=== PATIENT | female | born 1940 | race Caucasian/White ===

== ENCOUNTER 2017-02-21 14:22 | Inpatient (IN) | payer OTHER ==
--- NOTE | 2017-02-21 07:45 | BGECT ---
[f rep st] OUTPATIENT ECT Amended report ECT CONSULTATION IDENTIFYING DATA: The patient is a 76-year-old, , white female, accompanied by her [id number] daughter, who provided significant collateral information given the patient's poor insight and memory. This patient was referred for ECT consultation by Eagle Kaplan MD, who is her outpatient psychiatrist. She does have prior inpatient psychiatric hospitalization and ECT treatment [address] Kaplan also provided verbal collateral information prior to this visit. The patient presently lives alone but has had a slew of family members and friends who have attempted to help care for her over these last 2 months in which her severe depression and pain symptoms (to be described later) have been at their worst. She would be unable to adequately care for herself safely living independently. Her medical power of sports attorney is her son, living on the [facility]. She has no local family. REASON FOR CONSULTATION: The patient has a long history of mood disorder, most likely consistent with bipolar spectrum illness, who has been experiencing a 2- month history of dramatic increase in her depression with comorbid severe vulvodynia. The vulvodynia has been approached with multiple treatment efforts to no avail. These will be described more in medical history. Her depression seems clearly intertwined with this pain syndrome to the point where it is even unclear what the "chicken or the egg" is. She had the same event happened a year and a half ago but thankfully it resolved within a couple of months. Her present mood symptoms include dysphoria, anhedonia, anergia, amotivation, loss of appetite with 10-pound weight loss, and adequate sleep only by taking 2 over- the-counter Tylenol PM along with her alprazolam. She has a sense of hopelessness and futility with suicidal ideation without any present active plan. She does feel like a burden to her family. Her Barnett depression score was 45, and she did score a 1 on question #9 pertaining to suicidality. Her mood disorder questionnaire had 4/13 symptoms score positive. She is a poor historian around her medications given what her daughter describes as fairly significant short-term memory problems whereby she will forget something that they both spoke about just 5 minutes earlier. To the best of daughter's knowledge, the patient is on the following: Oxcarbazepine 300 mg t.i.d., alprazolam 0.25 mg b.i.d. and 0.5 mg at h.s. and the following antihypertensives : Metoprolol 100 mg b.i.d., amlodipine 5 mg q. day, losartan 100 mg q. day, and chlorthalidone 25 mg 1/2 q. day. She was recently started on Trintellix, a new antidepressant, by Dr. Kaplan but the patient simply stopped it for unclear reasons. The patient's daughter believes that she has also been on other antidepressants in the course of this last 2 months but clearly they have not helped. Indeed, the daughter indicates that the mother has been on a trajectory toward ever worsening depression over these last 2 months despite any intervention. She does have a history of suicide attempt by cutting on her wrists at 24 years old when she had an abrupt onset of her first severe depression in the absence of any situational stressor. She was hospitalized at that time, and had electroconvulsive therapy. She was then on lithium for a very long time until Dr. Kaplan took her off it. Dr. Kaplan has been treating her for 12 years. She has had a total of 4 major episodes over her life span, including this present one. 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 For instance, she thought a toy a was Satan and it had to be destroyed. She has no history of depression or seasonality to her mood episodes. She does have a relatively early onset of depression and by history no adequate response to antidepressants. She does have the psychotic episode. These elements, along with a more overt mixed psychotic episode and hyperthymic personality as well as the possibility of a family history of bipolar, all are significant red flags for her having bipolar spectrum illness. Her daughter does note that her short-term memory deficits have clearly been exacerbated in these last 2 months but have actually had an insidious worsening over the last 2 years. A Mini-Mental State Exam test was done in this office and she scored 29/30. The casualty underwriter, however, feels that the short-term memory element to this test was inaccurate as she was unable to recall when tested, a point of discussion that was made just a few minutes prior, confirming the daughter's observation of significant anterograde amnesia. She has not been worked up for dementia. She does have a history of significant hypertension requiring these for blood pressure medications, speaking to the possibility of a vascular element to her mood or cognitive issues. PAST PSYCHIATRIC HISTORY: Please see the history of present illness. PAST MEDICAL HISTORY: The patient suffers with hypertension for which she takes 4 medications which achieve relatively normal blood pressures. She had stage I breast cancer 12 years ago and received lumpectomy and radiation therapy , and is presumably in remission. Other than the blood pressure, the patient had slightly elevated cholesterol and was on a statin but once again became noncompliant with it for reasons that she herself cannot speak to. She does not suffer with diabetes and was a cigarette smoker up until 30 years ago. No family history of premature from coronary artery disease. She herself has no known history of UT or CVA. She does not have chronic daily headaches. Other than the vulvodynia, the patient has no other paresthesias or focal neurologic symptoms. She does take 2000 units a day of vitamin D3. ALLERGIES: She has no known drug allergies. FAMILY HISTORY: Significant for maternal grandmother and 2 uncles who all suicided. Her mother dealt with depression. The patient's daughter deals with depression and possibly bipolar. ALCOHOL AND DRUG HISTORY: The patient denies any present illicit substance use or alcohol use. She is arguably self-medicating with the Tylenol PM. She herself is not reliable around her medications and it is unclear whether all her serial caretakers have had adequate understanding of what her medication regimen is supposed to be. For instance, even this daughter who presented with her today, and has been out here 5 times since this episode has begun, was unaware that the patient had stopped certain medications or that she was taking others, stating that it was the previous nut processing supervisor, a nurse friend, who had made some of those changes without input from her doctors. The patient did smoke cigarettes up until 46 years old. SOCIAL HISTORY: The patient grew up in [place] until she was 13 years old. Then her parents and she moved with her mother to [place]. She has 3 siblings, 2 of whom live out of [facility]. One in an airplane crash. She has 1 half brother. 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 She has 4 children and 6 grandchildren. MENTAL STATUS EXAM: The patient is a 76-year-old white female who appears her stated age. She is adequately well-groomed with appropriate dress. There is some psychomotor slowing and impoverishment of speech and constriction of affect , all consistent with her depressed mood, but overall she is cooperative and pleasant and it is clear that she makes efforts to put on a good appearance. It seems that she is ambivalent about the idea of coming into the hospital, which seems necessary and in that sense it appears as if she is minimizing some of her symptoms at times in a way to negotiate for that hospitalization not to have to occur. At other times during the interview, she was clear that she needed relief from her mental and physical suffering as soon as possible. She admits to suicidal ideation without intent or plan. Thought processes are goal directed. Thought content is also positive for rumination around worry about her depression and vulvodynia to a degree that it is all consuming. She otherwise has no katie psychotic symptoms. Cognition is marked by clear impairment in her short and long-term memory. She also appears, unlike a patient with pseudodementia, to not be as aware of that deficit as others around her. She also seems to be relatively unphased and unimpacted by it. Judgment and insight are clearly impaired. She seemed able to focus and attend to this casualty underwriter's explanation about ECT but when I quizzed her moments after providing some basic information, she was unable to recollect the data. FIVE AXIS DIAGNOSES: AXIS I: 1. Bipolar 2 disorder, depressed with history of psychotic features. 2. Cognitive disorder, not otherwise specified (possibly due to medication, depression, and unclear etiology which may include vascular insults given the hypertension). 3. 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 AXIS II: Deferred. AXIS III: 1. Vulvodynia. 2. Remote history of breast cancer. 3. Hypertension. 4. Hyperlipidemia (noncompliant with statin). AXIS IV: Moderate. AXIS V: 32. IMPRESSION/RECOMMENDATION: The patient presents a complicated array of comorbidities at present. Notably, she is clearly unable to care for herself independently and her family is out of state. Her present caregiver, her daughter who is visiting temporarily, is dealing with a severe gastrointestinal virus and is not even able to stay with the patient for fear of sickening her. I am more concerned about grave disability and having untoward problems as a function of this patient's cognitive deficits and depression which include mismanaging her own medication and subsequent falls than I am with imminent suicidality. She and her daughter believe ECT is a good treatment alternative for her at this time. I agree that she has some degree of treatment resistance , although there are certainly medication trials that have not been attempted but a sense of urgency in the patient such that she feels unwilling to endure what would be likely a many-month attempt to get her mood symptoms under control with medications alone. What is further complicating her medication management, other than her own noncompliance based in part on her cognitive dysfunction, is diagnostic uncertainty. I am far from certain that this patient has a bipolar spectrum illness but if she did, it would arguably be less fruitful to start antidepressants and more so to use mood stabilizing medications. I will try and find out from Dr. Kaplan why she was taken off lithium. This may be worth restarting. Lamictal also could be a very helpful medication, although given its slow titration schedule, would also not reveal its benefits for 2 or 3 months. Seroquel or Latuda could be considered given their FDA approval for bipolar depression. I would also want to see her taken off her amnesogenic medications, the alprazolam and Tylenol PM. Those medications are, at best, Band-Aids, in my opinion, and are likely contributing to her anterograde amnesia and putting her at risk for gait disturbance and possibly increased depression itself. A pre ECT evaluation and implementation of treatment plan would most safely occur in inpatients and, if we choose to initiate acute ECT treatment, I would insist that this occur during her inpatient stay. I am concerned, given her memory impairment, that she would be at risk for significant cognitive problems , including delirium during acute ECT. I may even choose to start with 2 time per week treatments and do them right unilateral. Prior to starting ECT, the patient will require a history and physical, lab work, including "organic" labs , and an MRI of the brain to rule out any white matter lesions or other abnormalities. We would need to get a signed consent from her medical power of sports attorney, her son. I could try trazodone 25 mg at h.s. to help replace her Tylenol PM. I might consider switching her to a longer acting benzodiazepine than alprazolam in order to more seamlessly taper her off the benzodiazepines. I could certainly start either Lamictal, Seroquel or Latuda during her inpatient stay with Dr. Kaplan, and the patient and daughter's approval. This patient could even be a candidate for Symbyax given her weight loss with her depression. There would be no direct medical intervention for her vulvodynia while inpatient on the psychiatric unit but in this casualty underwriter's experience a patient with such a pain syndrome and comorbid depression often has at least an abatement of their pain with a commensurate abatement of their depression. Otherwise, the patient and daughter were given extensive verbal, written and internet-based references in the service of providing psychoeducation about ECT and its risks, benefits and alternatives. We discussed APA-based guidelines for being a candidate for this procedure, including factors such as acuity, treatment resistance, patient preference, and the risk of inaction or inadequate action, i.e., morbidity or mortality from one 's mood disorder (if undertreated) and the role of possible diagnostic uncertainty. Alternative treatments, such as further med trials, were discussed. STAR*D data was used to inform this medical decision-making process, comparing relative remission rates with further med trials in a treatment-resistant cohort with remission and response rates using ECT in treatment-resistant depression. The risks were highlighted, including mortality from anesthesia, UT, arrhythmia , or CVA. Common nuisance side effects were discussed, including headaches, nausea, jaw pain and muscle aches. Cognitive side effects were discussed extensively, both verbally and with written handout. This includes the potential for anterograde and retrograde amnesia and even, in her case, delirium. Slowed processing speed and abulia were discussed. We discussed right unilateral versus bilateral ECT and it is this casualty underwriter's opinion that we would start with right unilateral in order to mitigate the likelihood of severe cognitive impact given her already significant anterograde amnesia. The family understands a typical course of ECT is 6-18 treatments done 2-3 times per week with right unilateral often taking longer to complete than bilateral. Maintenance ECT was discussed as beneficial to reduce relapse risk when used with medications rather than either modality alone or, of course, neither modality. In the discussion of whether to start this in versus outpatient and the need for 24/7 supervision, in any case, it became clear that this patient, for many reasons, needs to undergo the lion's share of her acute treatment while inpatient. It then was discussed that she would benefit from being transferred to an assisted living facility for up to a month afterwards during the initial phase of her maintenance treatment and to convalesce from the cognitive impact of the acute phase. Missy Hu RN, has already started the discussion with the family about the logistics of our treatment and she has given them information about assisted living programs. They are aware of the therapeutic services provided by [facility]. /[id number]/MODL Add acc#, 02/22/17, kelvin [email or web address]
--- NOTE | 2017-02-21 15:04 | EDPHY ---
H & P Stated Complaint: sent by dr oh for eval/tlc for ect Time Seen by Provider: 02/21/17 14:51 HPI/ROS: CHIEF COMPLAINT: Depression HISTORY OF PRESENT ILLNESS: The patient is a 76-year-old female who is brought to the emergency department by her daughter for depression. She states that she has a chronic history of vulva pain and inflammation. She has been seen by several specialists but there is no specific treatment for her chronic pain. Because of this she has developed severe depression. She states that she has hardly got out of bed in the last month has lost 10 lb. Her daughter traveled from [place] to be with her and bring her here. Her psychiatrist is Dr. Contreras who referred her to Dr. Lao for ECT. She met Dr. Lao who recommended she come here for admission in ECT therapy. She denies suicidality. She denies homicidality. Denies self-harm or overdose. REVIEW OF SYSTEMS: Constitutional: denies: chills, fever, recent illness, recent injury EENTM: denies: blurred vision, double vision, nose congestion Respiratory: denies: cough, shortness of breath Cardiac: denies: chest pain, irregular heart rate, lightheadedness, palpitations Gastrointestinal/Abdominal: denies: abdominal pain, diarrhea, nausea, vomiting, blood streaked stools Genitourinary: denies: dysuria, frequency, hematuria, pain Musculoskeletal: denies: joint pain, muscle pain Skin: denies: lesions, rash, jaundice, bruising Neurological: denies: headache, numbness, paresthesia, tingling, dizziness, weakness Hematologic/Lymphatic: denies: blood clots, easy bleeding, easy bruising Immunologic/allergic: denies: HIV/AIDS, transplant EXAM: GENERAL: Well-appearing, well-nourished and in no acute distress. HEAD: Atraumatic, normocephalic. EYES: Pupils equal round and reactive to light, extraocular movements intact, sclera anicteric, conjunctiva are normal. ENT: TMs normal, nares patent, oropharynx clear without exudates. Moist mucous membranes. NECK: Normal range of motion, supple without lymphadenopathy or JVD. LUNGS: Breath sounds clear to auscultation bilaterally and equal. No wheezes rales or rhonchi. HEART: Regular rate and rhythm without murmurs, rubs or gallops. ABDOMEN: Soft, nontender, normoactive bowel sounds. No guarding, no rebound. No masses appreciated. BACK: No CVA tenderness, no spinal tenderness, step-offs or deformities EXTREMITIES: Normal range of motion, no pitting or edema. No clubbing or cyanosis. NEUROLOGICAL: Cranial nerves II through XII grossly intact. Normal speech, normal gait. 5/5 strength, normal movement in all extremities, normal sensation PSYCH: Pleasant,Normal mood, normal affect. SKIN: Warm, dry, normal turgor, no visible rashes or lesions. Source: Patient Exam Limitations: No limitations - Personal History Current Tetanus/Diphtheria Vaccine: Yes - Medical/Surgical History Hx Asthma: No Hx Chronic Respiratory Disease: No Hx Diabetes: No Hx Cardiac Disease: No Hx Renal Disease: No Hx Cirrhosis: No Hx Alcoholism: No Hx HIV/AIDS: No Hx Splenectomy or Spleen Trauma: No Other PMH: depression/breast cancer/htn - Family History Significant Family History: No pertinent family hx - Social History Smoking Status: Former smoker Alcohol Use: Sober Drug Use: None Constitutional: Initial Vital Signs Temperature (C) 36.5 C 02/21/17 14:28 Heart Rate 79 02/21/17 14:28 Respiratory Rate 16 02/21/17 14:28 Blood Pressure 126/84 H 02/21/17 14:28 O2 Sat (%) 92 02/21/17 14:28 O2 Delivery Mode Room Air Allergies/Adverse Reactions: No Known Allergies Allergy (Unverified 02/21/17 14:26) Home Medications: Medication Instructions Recorded Amlodipine Besylate 02/21/17 Chlorthalidone 02/21/17 LORAZEPAM 02/21/17 Losartan Potassium 02/21/17 Metoprolol Succinate 02/21/17 OXcarbazepine 02/21/17 Medical Decision Making - Diagnostics EKG Interpretation: An EKG obtained and was read and documented in trace view. Please see trace view for full reading and report. Sinus rhythm, no acute ischemic changes Imaging Results: Imaging Impressions Brain MRI 02/21/17 14:48 Impression: 1. Mild cerebral atrophy. 2. No acute infarct, hemorrhage, hydrocephalus, mass effect, or herniation. 3. Several nonspecific hyperintense T2/FLAIR signal abnormalities in the white matter of bilateral cerebral hemispheres. Differential diagnosis includes moderate microvascular ischemic gliosis, post-infectious/post-inflammatory sequela, atypical demyelinating disease, or migraine-related sequela. ED Course/Re-evaluation: 7:30 p.m. the patient is accepted to [address] [place] [address] and will have ECT tonight. Transfer paperwork completed. 8:20 p.m. patient accepted by Dr. Oh to [address] [place] [address]. Differential Diagnosis: Partial list of the Differential diagnosis considered include but were not limited to; depression, suicidality, and although unlikely based on the history and physical exam, I also considered psychosis, bipolar. - Data Points Laboratory Results: Laboratory Results 02/21/17 15:55 02/21/17 15:55 02/21/17 02/21/17 02/21/17 16:55 15:55 15:55 WBC 5.82 10^3/uL 10^3/uL (3.80-9.50) RBC 4.04 10^6/uL L 10^6/uL (4.18-5.33) Hgb 12.7 g/dL g/dL (12.6-16.3) Hct 34.6 % L % (38.0-47.0) MCV 85.6 fL fL (81.5-99.8) MCH 31.4 pg pg (27.9-34.1) MCHC 36.7 g/dL g/dL (32.4-36.7) RDW 12.9 % % (11.5-15.2) Plt Count 283 10^3/uL 10^3/uL (150-400) MPV 9.0 fL fL (8.7-11.7) Neut % (Auto) 58.1 % % (39.3-74.2) Lymph % (Auto) 22.0 % % (15.0-45.0) [place] % (Auto) 14.8 % H % (4.5-13.0) Eos % (Auto) 4.6 % % (0.6-7.6) Baso % (Auto) 0.3 % % (0.3-1.7) Nucleat RBC Rel Count 0.0 % % (0.0-0.2) Absolute Neuts (auto) 3.38 10^3/uL 10^3/uL (1.70-6.50) Absolute Lymphs (auto) 1.28 10^3/uL 10^3/uL (1.00-3.00) Absolute Monos (auto) 0.86 10^3/uL H 10^3/uL (0.30-0.80) Absolute Eos (auto) 0.27 10^3/uL 10^3/uL (0.03-0.40) Absolute Basos (auto) 0.02 10^3/uL 10^3/uL (0.02-0.10) Absolute Nucleated RBC 0.00 10^3/uL 10^3/uL (0-0.01) Immature Gran % 0.2 % % (0.0-1.1) Immature Gran # 0.01 10^3/uL 10^3/uL (0.00-0.10) Sodium Potassium Chloride Carbon Dioxide Anion Gap BUN Creatinine Estimated GFR Glucose Calcium Total Bilirubin AST ALT Alkaline Phosphatase C-React Prot High Sens Total Protein Albumin Vitamin B12 25-OH Vitamin D Total Folate TSH Urine Color YELLOW Urine Appearance CLEAR Urine pH 7.0 (5.0-7.5) Ur Specific [place] 1.010 (1.002-1.030) Urine Protein NEGATIVE (NEGATIVE) Urine Ketones NEGATIVE (NEGATIVE) Urine Blood NEGATIVE (NEGATIVE) Urine Nitrate NEGATIVE (NEGATIVE) Urine Bilirubin NEGATIVE (NEGATIVE) Urine Urobilinogen NEGATIVE EU EU (0.2-1.0) Ur Leukocyte Esterase NEGATIVE (NEGATIVE) Urine Glucose NEGATIVE (NEGATIVE) Urine Opiates Screen NEGATIVE (NEGATIVE) Urine Barbiturates NEGATIVE (NEGATIVE) Ur Phencyclidine Scrn NEGATIVE (NEGATIVE) Ur Amphetamine Screen NEGATIVE (NEGATIVE) U Benzodiazepines Scrn NON-NEGATIVE H (NEGATIVE) Urine Cocaine Screen NEGATIVE (NEGATIVE) U Marijuana (THC) Screen NON-NEGATIVE H (NEGATIVE) Ethyl Alcohol LIZ Screen MTHFR C677T Mutation Pending MTHFR Interpretation Pending MTHFR Reviewed By Pending 02/21/17 02/21/17 15:55 15:55 WBC RBC Hgb Hct MCV MCH MCHC RDW Plt Count MPV Neut % (Auto) Lymph % (Auto) [place] % (Auto) Eos % (Auto) Baso % (Auto) Nucleat RBC Rel Count Absolute Neuts (auto) Absolute Lymphs (auto) Absolute Monos (auto) Absolute Eos (auto) Absolute Basos (auto) Absolute Nucleated RBC Immature Gran % Immature Gran # Sodium 124 mEq/L L mEq/L (134-144) Potassium 3.4 mEq/L L mEq/L (3.5-5.2) Chloride 89 mEq/L L mEq/L (97-110) Carbon Dioxide 24 mEq/l mEq/l (22-31) Anion Gap 11 mEq/L mEq/L (8-16) BUN 15 mg/dL mg/dL (7-23) Creatinine 0.8 mg/dL mg/dL (0.6-1.0) Estimated GFR > 60 Glucose 94 mg/dL mg/dL (70-100) Calcium 9.7 mg/dL mg/dL (8.5-10.4) Total Bilirubin 0.8 mg/dL mg/dL (0.1-1.4) AST 29 IU/L IU/L (14-46) ALT 35 IU/L IU/L (9-52) Alkaline Phosphatase 92 IU/L IU/L (38-126) C-React Prot High Sens 6.6 mg/L mg/L Total Protein 7.1 g/dL g/dL (6.3-8.2) Albumin 4.4 g/dL g/dL (3.5-5.0) Vitamin B12 983 pg/mL H pg/mL (239-931) 25-OH Vitamin D Total 72.5 ng/mL ng/mL (30-100) Folate > 20.00 ng/mL ng/mL (2.80 - >20.00) TSH 0.397 uIU/mL L uIU/mL (0.465-4.680) Urine Color Urine Appearance Urine pH Ur Specific [place] Urine Protein Urine Ketones Urine Blood Urine Nitrate Urine Bilirubin Urine Urobilinogen Ur Leukocyte Esterase Urine Glucose Urine Opiates Screen Urine Barbiturates Ur Phencyclidine Scrn Ur Amphetamine Screen U Benzodiazepines Scrn Urine Cocaine Screen U Marijuana (THC) Screen Ethyl Alcohol < 10 mg/dL mg/dL (0-10) LIZ Screen Pending MTHFR C677T Mutation MTHFR Interpretation MTHFR Reviewed By Medications Given: Discontinued Medications Metoprolol Tartrate (Lopressor) 100 mg PO EDNOW ONE Stop: 02/21/17 19:36 Last Admin: 02/21/17 19:59 Dose: 100 mg Oxcarbazepine (Trileptal) 300 mg PO EDNOW ONE Stop: 02/21/17 19:36 Last Admin: 02/21/17 19:59 Dose: 300 mg Departure - Departure Disposition: [facility] IP Clinical Impression: Depression Qualifiers: Depression Type: major depressive disorder Major depression recurrence: recurrent Active/Remission status: currently active Major depression episode severity: severe Psychotic features: without psychotic features Qualified Code(s ): F33.2 - Major depressive disorder, recurrent severe without psychotic features Condition: Fair
[2017-02-21] MEDS ORDERED: MAG HYDROX/AL HYDROX/SIMETH 30 ML UDCUP PO PRN ×2 (15:27→21:33)
[2017-02-21] MEDS ORDERED: MAGNESIUM HYDROXIDE 30 ML UDCUP PO PRN ×2 (15:27→21:33)
[2017-02-21 16:07] LABS: % IMMATURE GRANULYOCYTES 0.2 % (0.0-1.1); ABSOLUTE IMMATURE GRANULOCYTES 0.01 10^3/uL (0.00-0.10); ADD DIFF? NO; ADD MORPH? NO; ADD SCAN? NO; ATYPICAL LYMPHOCYTE FLAG 30 (0-99); FRAGMENT RBC FLAG 0 (0-99); HEMATOCRIT 34.6 % (38.0-47.0); HEMOGLOBIN 12.7 g/dL (12.6-16.3); LEFT SHIFT FLG 0 (0-99); LIPEMIA HEMOLYSIS FLAG 90 (0-99); MEAN CELL HEMOGLOBIN 31.4 pg (27.9-34.1); MEAN CELL HEMOGLOBIN CONCENTR. 36.7 g/dL (32.4-36.7); MEAN CELL VOLUME 85.6 fL (81.5-99.8); PLATELET CLUMPS FLAG 20 (0-99); PLATELET COUNT 283 10^3/uL (150-400); RED BLOOD CELL COUNT 4.04 10^6/uL (4.18-5.33); RED CELL DISTRIBUTION WIDTH 12.9 % (11.5-15.2)
--- NOTE | 2017-02-21 16:08 | CPEKG ---
Heart Rate: 72 RR Interval: 833 P-R Interval: 184 QRSD Interval: 90 QT Interval: 384 QTC Interval: 421 P [place]: 77 QRS [place]: 32 T Wave [place]: 59 EKG Severity - NORMAL ECG - EKG Impression: SINUS RHYTHM Electronically Signed By: Manuel Burgos 21-Feb-2017 16:16:00
[2017-02-21 16:55] LABS: ALANINE AMINOTRANSFERASE 35 IU/L (9-52); ALBUMIN 4.4 g/dL (3.5-5.0); ALKALINE PHOSPHATASE 92 IU/L (38-126); ANION GAP 11 mEq/L (8-16); ASPARTATE AMINOTRANSFERASE 29 IU/L (14-46); BILIRUBIN,TOTAL 0.8 mg/dL (0.1-1.4); CALCIUM 9.7 mg/dL (8.5-10.4); CARBON DIOXIDE 24 mEq/l (22-31); CHLORIDE 89 mEq/L (97-110); CREATININE 0.8 mg/dL (0.6-1.0); ETHANOL SERUM < 10 mg/dL (0-10); GLOMERULAR FILTRATION RATE > 60; GLUCOSE 94 mg/dL (70-100); POTASSIUM 3.4 mEq/L (3.5-5.2); SODIUM 124 mEq/L (134-144); TOTAL PROTEIN 7.1 g/dL (6.3-8.2)
[2017-02-21 16:58] LABS: HIGHLY SENSITIVE CRP 6.6 mg/L
[2017-02-21 17:03] LABS: COLOR YELLOW; LEUKOCYTE ESTERASE,URINE NEGATIVE (NEGATIVE); NITRITE,URINE NEGATIVE (NEGATIVE)
[2017-02-21 17:12] LABS: VITAMIN D 25-HYDROXY TOTAL 72.5 ng/mL (30-100)
[2017-02-21 18:01] LABS: FOLATE SERUM > 20.00 ng/mL (2.80 - >20.00)
[2017-02-21] MEDS ORDERED: METOPROLOL TARTRATE 100 MG TAB PO ONE (19:35)
[2017-02-21] MEDS ORDERED: OXcarbazepine 300 MG TAB PO ONE (19:35)
[2017-02-21] MEDS ORDERED: METOPROLOL TARTRATE 50 MG TAB ONE (19:52)
[2017-02-21] MEDS ORDERED: QUEtiapine FUMARATE 50 MG TAB PO PRN (20:08)
--- NOTE | 2017-02-21 20:25 | PDCONSULT ---
Education Nurse Note: Please see full dictated report from 02/20 on this patient. I met with pt and daughter in ED, prior to her transfer to at [place]. She remains clinically unchanged, anxious, dysphoric and perplexed. Some of her Organic w/u are back and notable for MRI with bilateral white matter lesions c/w possible "vascular depression" which can be a hargbinger of vascular dementia. EKG wnl. TSH slightly suppressed. B12, folate vit d wnl. Lytes with hyponatremia, NA of 124, likely due to Trileptal but cannot r/o other causes. Will stop Trileptal as we would plan to do going into ECT anyway and re-check Na in am. U/A neg for UTI. Pt with both benzo and THC in UDS, c/w with her xanax Rx and daughter's report that she had mother try "a brownie" for vulvodynia pain relief. Will d/c xanax along with trileptal. She reports only taking 0.125 mg a day. Also, she will not have access to her Tylenol PM of course while inpatient. To cover anxiety and insomnia, I will Rx low dose seroquel. Seroquel may be titrated given its FDA approval in bipolar depression and in this patients case , appetite stimulation is a plus. Pt may be a good Low dose Li plus Lamictal candidate. WIll discuss with Dr Kaplan. WIll re check lipids in AM and have inspector handbag frames consider re-start of her statin given her white matter changes on MRI, HTN, and h/o of hyperlipidemia. Possible ECT start for tomorrow, pending Na level, second opinion letter from Dr Kaplan and at least verbal consent given by son (Medical POA). Daughter and pt have already provided I/C to start ECT and Dr Kaplan wishes her to undergo tx per phone discussion with him yesterday. Laboratory Tests 02/21/17 02/21/17 02/21/17 15:55 15:55 16:55 Hct 34.6 L Sodium 124 L Potassium 3.4 L Chloride 89 L Vitamin B12 983 H 25-OH Vitamin D Total 72.5 Folate > 20.00 TSH 0.397 L U Benzodiazepines Scrn NON-NEGATIVE H U Marijuana (THC) Screen NON-NEGATIVE H MSE unchanged from 02/20 5 axis Dx unchanged from 02/20
[2017-02-21] MEDS ORDERED: QUEtiapine FUMARATE 25 MG TAB PO SCH (21:00)
[2017-02-21] MEDS: QUEtiapine FUMARATE 25 MG TAB PO SCH (22:15)
[2017-02-21] MEDS ORDERED: LORazepam 0.5 MG TAB PO ONE (22:30)
[2017-02-22] MEDS: CHLORTHALIDONE 25 MG TAB PO SCH (08:54)
[2017-02-22] MEDS: LOSARTAN POTASSIUM 50 MG TAB PO SCH (08:55)
[2017-02-22] MEDS: amLODIPine BESYLATE 5 MG TAB PO SCH (08:57)
[2017-02-22] MEDS ORDERED: METOPROLOL TARTRATE 100 MG TAB PO SCH ×2 (09:00)
[2017-02-22] MEDS ORDERED: METOPROLOL TARTRATE 50 MG TAB PO SCH (09:00)
[2017-02-22 09:50] LABS: ANION GAP 10 mEq/L (8-16); CARBON DIOXIDE 28 mEq/l (22-31); CHLORIDE 89 mEq/L (97-110); GLUCOSE 113 mg/dL (70-100); POTASSIUM 3.7 mEq/L (3.5-5.2); SODIUM 127 mEq/L (134-144)
[2017-02-22 09:51] LABS: CALCIUM 9.6 mg/dL (8.5-10.4); CHOLESTEROL 219 mg/dL (140-220); CHOLESTEROL/HDL RATIO 3.98 RATIO (1.00-4.44); CREATININE 0.6 mg/dL (0.6-1.0); GLOMERULAR FILTRATION RATE > 60; HIGH DENSITY LIPOPROTEIN 55 mg/dL (40-85); LDL/HDL RATIO 2.38 RATIO (1.00-3.22); LOW DENSITY LIPOPROTEIN 131 mg/dL (80-100); NON-HIGH DENSITY LIPOPROTEIN 164 mg/dL (90-129); TRIGLYCERIDE 166 mg/dL (35-135); VERY LOW DENSITY LIPOPROTEINS 33 mg/dL (8-25)
[2017-02-22] MEDS: QUEtiapine FUMARATE 25 MG TAB PO PRN (12:59)
[2017-02-22] MEDS: LORazepam 0.5 MG TAB PO PRN (13:01)
--- NOTE | 2017-02-22 13:23 | SOAPPROG ---
SOAP Progress Note Assessment/Plan: Assessment: Bipolar II, depressed with history of psychotic fx, Cognitive D/O nos ( secondary to meds, Hyponatremia, mood state and/or incipient vascular dementing process), Pain D/O, HTN, Vulvodynia, hyperlipidemia Plan:Met with pt today for 25 min. She is upset about not getting started with ECT today and understands MDs explanation of risks involved with low Na. She responded to seroquel with adequate sleep. She is quite anxious today and has notable hand tremor which could be c/w withdrawal from benzo and trileptal. I have her on essentially a CWAS in that she is being checked q4 hour with VS and for tremulousness with a prn order to give ativan for increased BP, P, or tremor. Will have RN dose her now. Will call son Esequiel re plan and to update him and provide psychoed re ECT. Will have hospitalist consult re Na (which has come up to 127) to ascertain if there might be an etiology other than Trileptal SE. Pt denies polydipsia,for instance. WOuld expect she be re-started on Statin given Lipids and other CAD risk factors, along with MRI findings. Checking HgA1C due to glucose result of CMP 02/22/17 13:23 Objective: Vital Signs Temp Pulse Resp BP Pulse Ox 36.6 C 79 12 100/54 L 96 02/22/17 12:59 02/22/17 12:59 02/22/17 12:59 02/22/17 12:59 02/22/17 12:59 Laboratory Results 02/22/17 08:20 Laboratory Tests 02/21/17 02/22/17 15:55 08:20 Sodium 124 L 127 L Triglycerides 166 H Cholesterol 219 LDL Cholesterol, Calc 131 H HDL Cholesterol 55 ICD10 Worksheet Patient Problems: Problems Problem Status Onset Depression Acute
--- NOTE | 2017-02-22 20:05 | BCON ---
[f rep st] BEHAVIORAL HEALTH CONSULTATION INTERNAL MEDICINE CONSULTATION DATE OF CONSULTATION: 02/22/2017 REFERRING PHYSICIAN: Ruben Juarez MD REASON FOR REFERRAL: Medical clearance for inpatient behavioral health stay. HISTORY OF PRESENT ILLNESS: The patient has had worsening depression with some suicidality for at least a month. It appears to have coincided with severe vulvodynia. She reports she has been to 3 different specialists and not found a reason for her vulvar pain. She was referred for electroconvulsive therapy by her outpatient psychiatrist, having had trials of many different medications , and she was admitted through the emergency department. She had reportedly been not completely compliant with some of her medications, including HMG-CoA reductase inhibitor for dyslipidemia. She was found to have hyponatremia on laboratory studies yesterday in the emergency department. It improved today after discontinuation of oxcarbazepine. She additionally has dyslipidemia on lipid panel that was drawn this morning. She is currently without any acute complaints. She reports that she has continued vulvar pain. PAST MEDICAL HISTORY: 1. Breast cancer 12 years ago, status post lumpectomy with no recurrence that she knows. 2. Hypertension. 3. Dyslipidemia. 4. Depression. MEDICATIONS PRIOR TO ADMISSION: 1. Amlodipine 5 mg p.o. daily. 2. Chlorthalidone 12.5 mg p.o. daily. 3. Losartan 100 mg p.o. daily. 4. Metoprolol 100 mg p.o. b.i.d. 5. Alprazolam 0.125 mg b.i.d. 6. Oxcarbazepine 300 mg t.i.d. ALLERGIES: There are no known drug allergies. SOCIAL HISTORY: She is . She lives alone. She has had frequent visits from out of state daughter due to her issues around her functioning with the vulvodynia and the depression. She has a remote history of tobacco smoking. She has 4 children and 6 grandchildren. She is a retired high school history teacher. FAMILY HISTORY: There is significant family history of depression and suicide. REVIEW OF SYSTEMS: She endorses vulvar pain, though she does not appear to be in any distress at present. She has had weight loss over the past month or 2 with a reduced appetite. She denies neurologic symptoms including vision changes, difficulty swallowing, weakness, numbness or tingling of the extremities. She denies chest pain or palpitations. She denies cough or dyspnea. She denies nausea, vomiting, constipation, or diarrhea. She denies dysuria or urinary frequency. She denies joint pain or joint stiffness. She denies skin rash or skin breakdown. She denies feeling excessively hot or cold. She does have fatigue, and she is aware of some issues with her memory. PHYSICAL EXAM: VITAL SIGNS: Blood pressure is 115/57. Heart rate is 84, respiratory rate is 20. Oxygen saturation is 98% on room air. Temperature is 36 degrees centigrade. Her weight is 63.5 kg for a body mass index of 22.6. GENERAL: This is a well-nourished, well-developed woman wearing a green suicide [place], sitting up in a chair, cooperative, and in no acute distress. HEENT: Extraocular movements are intact. Pupils are equal, round, and reactive to light. Mucous membranes are moist. Dentition is in good condition. There is no posterior oropharyngeal mucus. There were no oropharyngeal mucosal lesions. NECK: Supple with no thyromegaly. HEART: There is a regular rate and rhythm with no murmurs, rubs, or gallops. LUNGS: Clear to auscultation bilaterally. ABDOMEN: Soft, nontender, nondistended with normoactive bowel sounds. EXTREMITIES: There is no cyanosis, clubbing, or edema. Radial pulses are 2+ bilaterally. Dorsalis pedis pulse is 2+ on the right. Dorsalis pedis and posterior tibialis pulses are non palpable on the left. NEUROLOGIC: She is alert and oriented to her general situation, the date of the month and the year. She does not know the name of the facility and thinks it is called [facility]. Though her blood pressure medications were reviewed with her, several minutes later she was unable to recall her blood pressure medicines other than losartan. Cranial nerves 2-12 are grossly intact. There is no focal weakness. Sensation is intact to light touch. Deep tendon reflexes are 2+ bilaterally at the biceps, patellar, and Achilles tendons. Glabellar and snouting reflexes are negative. Palmomental is positive. Her gait is within normal limits. LABORATORY STUDIES: Drawn in the emergency department, and this morning. Yesterday, her sodium was 124, potassium was 3.4, chloride was 89. Yesterday morning, she had a markedly low sodium at 124. Potassium and chloride were slight slightly low at 3.4 and 89. Otherwise, renal function and electrolytes and liver functions were within normal limits. Vitamin B12 was slightly high. Vitamin D was fully repleted and normal at 72.5. Folate was greater than 20. TSH was slightly suppressed at 0.397. Hemoglobin A1c was 6, the upper limit of normal, and then this morning sodium had improved from 124 to 127. Potassium had normalized. Chloride was still slightly low. Glucose was elevated at 113, but it is unclear whether this was fasting. A lipid panel was drawn which showed triglycerides of 166, cholesterol of 219, LDL of 131, HDL of 55. Hematology revealed very slight anemia with hematocrit of 34.6, otherwise overall within normal limits. There was a slight increase of absolute monocytes at 0.86 with the upper limit of normal being 0.8. Urinalysis was normal. Urine toxicology screen was non negative for benzodiazepines and marijuana. Ethyl alcohol in the serum was negative. ASSESSMENT/RECOMMENDATIONS: 1. Mental health issues, planning electroconvulsive therapy for refractory depression and further management per Psychiatry and the mental health team. 2. Hyponatremia, improving with discontinuation of oxcarbazepine. Most likely , oxcarbazepine is etiologic. It is possible that chlorthalidone is contributing as well. BMP has been ordered to be repeated in the morning. I have added on serum osmolality, urine osmolality, and urine sodium so that in case her serum sodium is not improving we can have a better understanding of the etiology of the hyponatremia. 3. Dyslipidemia. Per the ACC/SERNA 2013 criteria, she has a 16.8% 10 year cardiovascular risk with her hemoglobin A1c being at the upper end of normal indicating a possible prediabetic condition as well as possible peripheral vascular disease with no palpable pulses in her left foot. It is likely that an HMG-CoA reductase inhibitor is indicated to improve her dyslipidemia and reduce her 10 year cardiovascular risk. She could be further risk stratified as an outpatient with an ankle-brachial index to rule out peripheral vascular disease. Her risk factors would be history of smoking and hypertension as well as dyslipidemia. 4. Hypertension, appears to be adequately controlled on her current medications. Would continue those unless her hyponatremia proves to be refractory, in which case the next step would be to discontinue the chlorthalidone and increase her amlodipine from 5 mg to 10 mg. 5. Subclinical hyperthyroidism. I have ordered a free T4 and T3 for tomorrow morning. Her thyroid abnormality may be resulting from her depression and weight loss. It is unlikely that with such a slightly suppressed TSH that hyperthyroidism would be etiologic. There was no abnormality in her thyroid exam. Advise recheck TSH in 4-6 weeks. 6. Possible peripheral vascular disease. Advise ankle-brachial index testing as an outpatient. 7. Cognitive impairment. Vascular dementia is a possibility. Vascular risk factors are also risk factors for Alzheimer's dementia. Consider formal cognitive testing by a neuropsychologist if cognition does not improve with treatment of depression. 8. Vulvodynia. She reports evaluation by 3 different physicians, and complains of ongoing pain, though she did not seem distressed today. Query whether there is an element of dementia-related perseveration. Further evaluation could include review of records from treating physicians. I see no medical contraindications to the patient's continued stay on the inpatient behavioral health unit or to any psychiatric medications or procedures. Thank you very much for including me in the care of the patient, and please do not hesitate to contact me or the hospitalist service should there be need for further medical evaluation. I will follow up on her lab results tomorrow. /[id number]/MODL MTDD
[2017-02-22] MEDS: QUEtiapine FUMARATE 25 MG TAB PO SCH (20:35)
[2017-02-22] MEDS: METOPROLOL TARTRATE 100 MG TAB PO SCH (20:35)
[2017-02-23] MEDS: LORazepam 0.5 MG TAB PO PRN ×2 (05:58→12:32)
[2017-02-23] MEDS: METOPROLOL TARTRATE 100 MG TAB PO SCH ×2 (09:09→20:20)
[2017-02-23] MEDS: CHLORTHALIDONE 25 MG TAB PO SCH (09:11)
[2017-02-23] MEDS: amLODIPine BESYLATE 5 MG TAB PO SCH (09:11)
[2017-02-23] MEDS: LOSARTAN POTASSIUM 50 MG TAB PO SCH (09:12)
[2017-02-23 12:34] LABS: ANION GAP 11 mEq/L (8-16); CALCIUM 9.6 mg/dL (8.5-10.4); CARBON DIOXIDE 27 mEq/l (22-31); CHLORIDE 94 mEq/L (97-110); CREATININE 0.7 mg/dL (0.6-1.0); GLOMERULAR FILTRATION RATE > 60; GLUCOSE 90 mg/dL (70-100); SODIUM 132 mEq/L (134-144)
--- NOTE | 2017-02-23 14:12 | SOAPPROG ---
SOAP Progress Note Assessment/Plan: Assessment: * Hyponatremia, likely due to oxcarbazepine, improving. Continue to monitor. * HTN: BP elevated today. Would not stop chlorthalidone as hyponatremia is resolving. Continue to monitor. If continues elevated, would increase amlodipine and consider changing it to HS for better 24-hour coverage. 02/23/17 14:13 Subjective: Labs reviewed. Na improved to 132, Urine is dilute, not c/w SIADH. She is without complaint otherwise. Objective: Vital Signs Temp Pulse Resp BP Pulse Ox 36.5 C 87 12 148/66 H 88 L 02/23/17 08:15 02/23/17 09:09 02/23/17 08:15 02/23/17 09:12 02/23/17 08:15 Laboratory Results 02/23/17 06:00 Physical Exam - Physical Exam General Appearance: WD/WN, alert, no apparent distress ICD10 Worksheet Patient Problems: Problems Problem Status Onset Depression Acute
--- NOTE | 2017-02-23 14:46 | SOAPPROG ---
SOAP Progress Note Assessment/Plan: Assessment: Bipolar II, depressed with history of psychotic fx, Cognitive D/O nos ( secondary to meds, Hyponatremia, mood state and/or incipient vascular dementing process), Pain D/O, HTN, Vulvodynia, hyperlipidemia Plan:Met with pt today for 25 min. She is upset about not getting started with ECT today and understands MDs explanation of risks involved with low Na. She responded to seroquel with adequate sleep. She is quite anxious today and has notable hand tremor which could be c/w withdrawal from benzo and trileptal. I have her on essentially a CWAS in that she is being checked q4 hour with VS and for tremulousness with a prn order to give ativan for increased BP, P, or tremor. Will have RN dose her now. Will call son Esequiel re plan and to update him and provide psychoed re ECT. Will have hospitalist consult re Na (which has come up to 127) to ascertain if there might be an etiology other than Trileptal SE. Pt denies polydipsia,for instance. WOuld expect she be re-started on Statin given Lipids and other CAD risk factors, along with MRI findings. Checking HgA1C due to glucose result of CMP 02/22/17 13:23 02/23/17 14:39 Met with pt twice today. Discussed with RN. Pt remains dysphoric, perplexed, anxious and indecisive. MD expressed uncertainty about starting ECT tomorrow vs holding off and giving med approach, as discussed with Dr Kaplan, a try. THese meds include adding Li and LMT to regimen. She had good response to Li historcially and went off of it for no clear reason years ago. My ambiguity was difficult for her and she kept repeating "I'm leaving it up to you...I trust you ". I will have RN do cognitive testing more reliable and sensitive than a MMSE. The presence of dementia-like findings does not prohibit the use of ECT, but puts pt at risk for greater cognitive impact, including delirium. Na level is improving off Trileptal. I greatly appreciate Dr Renteria's thorough eval around this and other issues.. HgA1c point to pre-diabetic changes. Would likely benefit from statin, krishna as she had been on one and became n/c for unclear reasons (not side effects). Will re Check Na one more time tomorrow, review cognitive testing results and decide whether to start ECT Monday. Will keep NPO to cover that possiblity. Objective: Vital Signs Temp Pulse Resp BP Pulse Ox 36.2 C 62 12 140/66 H 96 02/23/17 12:15 02/23/17 12:15 02/23/17 12:15 02/23/17 12:15 02/23/17 12:15 Laboratory Results 02/23/17 06:00 Laboratory Tests 02/23/17 06:00 Sodium 132 L ICD10 Worksheet Patient Problems: Problems Problem Status Onset Depression Acute
[2017-02-23] MEDS: LIDOCAINE 2% JELLY 5 ML TUBE TP PRN (19:08)
[2017-02-23] MEDS: QUEtiapine FUMARATE 25 MG TAB PO SCH (20:20)
[2017-02-23] MEDS: lamoTRIgine 25 MG TAB PO SCH (20:20)
[2017-02-23] MEDS ORDERED: LITHIUM CARBONATE 300 MG CAP PO SCH (21:00)
[2017-02-24] MEDS ORDERED: NS 1,000 ML IV ONE (04:00)
[2017-02-24] MEDS ORDERED: LIDOCAINE 2% 5 ML SDV ID ONE (04:00)
[2017-02-24] MEDS ORDERED: ONDANSETRON DISINTEGRATING 4 MG TAB PO ONE (04:00)
[2017-02-24] MEDS ORDERED: CITRIC ACID/SODIUM CITRATE 30 ML UDCUP PO ONE (04:00)
[2017-02-24 07:11] LABS: INTERPRETATION See Comments
[2017-02-24] MEDS: METOPROLOL TARTRATE 100 MG TAB PO SCH ×2 (08:28→19:30)
[2017-02-24] MEDS: LOSARTAN POTASSIUM 50 MG TAB PO SCH (08:28)
[2017-02-24] MEDS: amLODIPine BESYLATE 5 MG TAB PO SCH (08:28)
[2017-02-24] MEDS: CHLORTHALIDONE 25 MG TAB PO SCH (08:32)
[2017-02-24] MEDS ORDERED: fentaNYL 100 MCG/2 ML INJ ONE (10:12)
[2017-02-24] MEDS ORDERED: MIDAZOLAM 2 MG/2 ML VIAL ONE (10:12)
[2017-02-24] MEDS ORDERED: ETOMIDATE 20 MG/10 ML VIAL ONE (10:12)
[2017-02-24] MEDS ORDERED: ONDANSETRON 4 MG/2 ML VIAL ONE (10:12)
[2017-02-24] MEDS ORDERED: GLYCOPYRROLATE 0.2 MG/1 ML VIAL ONE (10:12)
[2017-02-24] MEDS ORDERED: ROCURONIUM 50 MG/5 ML VIAL ONE (10:12)
[2017-02-24] MEDS ORDERED: SUCCINYLCHOLINE CHLORIDE 200 MG/10 ML VIAL ONE (10:13)
[2017-02-24 10:40] LABS: ANION GAP 9 mEq/L (8-16); CALCIUM 9.6 mg/dL (8.5-10.4); CARBON DIOXIDE 27 mEq/l (22-31); CHLORIDE 97 mEq/L (97-110); CREATININE 0.7 mg/dL (0.6-1.0); GLOMERULAR FILTRATION RATE > 60; GLUCOSE 84 mg/dL (70-100); POTASSIUM 4.1 mEq/L (3.5-5.2); SODIUM 133 mEq/L (134-144)
[2017-02-24] MEDS ORDERED: CITRIC ACID/SODIUM CITRATE 30 ML UDCUP ONE (12:07)
[2017-02-24] MEDS ORDERED: ONDANSETRON DISINTEGRATING 4 MG TAB ONE (12:07)
[2017-02-24] MEDS ORDERED: ONDANSETRON DISINTEGRATING 4 MG TAB PO PRN (12:50)
[2017-02-24] MEDS ORDERED: HYDROCODONE/APAP 5/325 TAB PO PRN (12:50)
[2017-02-24] MEDS ORDERED: IBUPROFEN 600 MG TAB PO PRN (12:50)
--- NOTE | 2017-02-24 13:02 | SOAPPROG ---
SOAP Progress Note Assessment/Plan: Assessment: Bipolar II, depressed with history of psychotic fx, Cognitive D/O nos ( secondary to meds, Hyponatremia, mood state and/or incipient vascular dementing process), Pain D/O, HTN, Vulvodynia, hyperlipidemia Plan:Met with pt today for 25 min. She is upset about not getting started with ECT today and understands MDs explanation of risks involved with low Na. She responded to seroquel with adequate sleep. She is quite anxious today and has notable hand tremor which could be c/w withdrawal from benzo and trileptal. I have her on essentially a CWAS in that she is being checked q4 hour with VS and for tremulousness with a prn order to give ativan for increased BP, P, or tremor. Will have RN dose her now. Will call son Esequiel re plan and to update him and provide psychoed re ECT. Will have hospitalist consult re Na (which has come up to 127) to ascertain if there might be an etiology other than Trileptal SE. Pt denies polydipsia,for instance. WOuld expect she be re-started on Statin given Lipids and other CAD risk factors, along with MRI findings. Checking HgA1C due to glucose result of CMP 02/22/17 13:23 02/23/17 14:39 Met with pt twice today. Discussed with RN. Pt remains dysphoric, perplexed, anxious and indecisive. MD expressed uncertainty about starting ECT tomorrow vs holding off and giving med approach, as discussed with Dr Kaplan, a try. THese meds include adding Li and LMT to regimen. She had good response to Li historcially and went off of it for no clear reason years ago. My ambiguity was difficult for her and she kept repeating "I'm leaving it up to you...I trust you ". I will have RN do cognitive testing more reliable and sensitive than a MMSE. The presence of dementia-like findings does not prohibit the use of ECT, but puts pt at risk for greater cognitive impact, including delirium. Na level is improving off Trileptal. I greatly appreciate Dr Renteria's thorough eval around this and other issues.. HgA1c point to pre-diabetic changes. Would likely benefit from statin, krishna as she had been on one and became n/c for unclear reasons (not side effects). Will re Check Na one more time tomorrow, review cognitive testing results and decide whether to start ECT Monday. Will keep NPO to cover that possiblity. 02/24/17 12:56 Pt agreed to start RUL ECT today, stating her mood and anxiety were only worsening. Her Na level is up to 133 and her score on the Kevin Cognitive Assessment was 26/30 with points off for recall of 5 words after 5 minutes. Her only real deficit was STM, other cognitive functions remain intact. Again, this can be meds, mood illness, or vascular insult. No contraindication to doing ECT, but does put pt at higher risk of delirium. May need to do 2x/week ECT to mitigate that risk. I will restart her Lipitor. 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
[2017-02-24] MEDS: ATORVASTATIN CALCIUM 10 MG TAB PO SCH (19:29)
[2017-02-24] MEDS: LORazepam 0.5 MG TAB PO PRN (19:29)
[2017-02-24] MEDS: QUEtiapine FUMARATE 25 MG TAB PO SCH (19:31)
[2017-02-24] MEDS: lamoTRIgine 25 MG TAB PO SCH (19:31)
[2017-02-24] MEDS: QUEtiapine FUMARATE 25 MG TAB PO PRN (19:38)
[2017-02-24] MEDS: LIDOCAINE 2% JELLY 5 ML TUBE TP PRN (21:51)
[2017-02-25] MEDS: METOPROLOL TARTRATE 100 MG TAB PO SCH ×2 (09:22→20:51)
[2017-02-25] MEDS: CHLORTHALIDONE 25 MG TAB PO SCH (09:23)
[2017-02-25] MEDS: LOSARTAN POTASSIUM 50 MG TAB PO SCH (09:24)
[2017-02-25] MEDS: amLODIPine BESYLATE 5 MG TAB PO SCH (09:24)
[2017-02-25] MEDS: QUEtiapine FUMARATE 25 MG TAB PO PRN (17:42)
[2017-02-25] MEDS: LORazepam 0.5 MG TAB PO PRN (18:21)
[2017-02-25] MEDS: QUEtiapine FUMARATE 25 MG TAB PO SCH (20:51)
[2017-02-25] MEDS: lamoTRIgine 25 MG TAB PO SCH (20:51)
[2017-02-25] MEDS: ATORVASTATIN CALCIUM 10 MG TAB PO SCH (20:51)
--- NOTE | 2017-02-25 23:55 | SOAPPROG ---
SOAP Progress Note Assessment/Plan: Assessment: Bipolar II, depressed with history of psychotic fx, Cognitive D/O nos ( secondary to meds, Hyponatremia, mood state and/or incipient vascular dementing process), Pain D/O, HTN, Vulvodynia, hyperlipidemia. Started unilat ECT on 02/24. 02/25/2017 16:00 Per staff, pt slept 7.5 hrs. Has been reporting to staff that she feels deep depression now after ECT and would like an antidepressant. Also complained of some vague abd pains/discomfort. On eval,. pt was anxious and c/o feeling very depressed, also c/o vaginal and abdominal pain for which she reported seeing 3 diff MDs about in past, and indicated this pain occurred chronically intermittently and was not new/acute. T /a this being 2nd hosp, first when 26yo. Was concerned about her meds being changed after feeling she was stable on Trileptal 300/600 for 15yrs. States having passive SI. Reviewed meds and recent med changes. Reassured about changes, and that there may be a period of adjustment after a longstanding med has been removed, and encouraged to ask for prns avail to help with transition. Also talked with RN about this, and recommended pt get a prn ativan despite prn seroquel given within the hour. Checked back with patient later in evening and pt felt improved. Also had roommate change and seems to be getting along very well with her. MSE: older CF, pleasant, nml speech, slight tremor seemed anxiety related, affect anxious, mood anxious/depressed, voicing some passive SI but no plan/ intent, denied psychotic sxs, and cognition seemed conversationally intact although not formally tested. No evid of delirium. i/j fair. PLAN: encouraged pt to request prn seroquel a couple of times/day as body gets used to recent med changes. seemed to calm with encouragement/reassurance. also has prn ativan if absolutely necessary. continue outpt ECT as planned Objective: Vital Signs Temp Pulse Resp BP Pulse Ox 36.4 C 79 12 130/65 H 97 02/25/17 19:26 02/25/17 20:51 02/25/17 19:26 02/25/17 20:51 02/25/17 19:26 Laboratory Results 02/24/17 06:00 - Time Spent With Patient Time Spent With Patient: 40min - Pending Discharge Pending Discharge Within 24 Hours: No Pending Discharge Within 48 Hours: No ICD10 Worksheet Patient Problems: Problems Problem Status Onset Depression Acute
[2017-02-26] MEDS: METOPROLOL TARTRATE 100 MG TAB PO SCH ×2 (08:39→19:57)
[2017-02-26] MEDS: LOSARTAN POTASSIUM 50 MG TAB PO SCH (08:42)
[2017-02-26] MEDS: CHLORTHALIDONE 25 MG TAB PO SCH (08:44)
[2017-02-26] MEDS: amLODIPine BESYLATE 5 MG TAB PO SCH (08:45)
[2017-02-26] MEDS: LORazepam 0.5 MG TAB PO PRN (13:07)
[2017-02-26] MEDS: QUEtiapine FUMARATE 25 MG TAB PO PRN (13:07)
[2017-02-26] MEDS: ATORVASTATIN CALCIUM 10 MG TAB PO SCH (19:58)
[2017-02-26] MEDS: lamoTRIgine 25 MG TAB PO SCH (19:58)
[2017-02-26] MEDS: QUEtiapine FUMARATE 25 MG TAB PO SCH (19:59)
[2017-02-26] MEDS: LIDOCAINE 2% JELLY 5 ML TUBE TP PRN (20:15)
--- NOTE | 2017-02-27 00:37 | SOAPPROG ---
SOAP Progress Note Assessment/Plan: Assessment: Bipolar II, depressed with history of psychotic fx, Cognitive D/O nos ( secondary to meds, Hyponatremia, mood state and/or incipient vascular dementing process), Pain D/O, HTN, Vulvodynia, hyperlipidemia. Started unilat ECT on 02/24. 02/25/2017 16:00 Per staff, pt slept 7.5 hrs. Has been reporting to staff that she feels deep depression now after ECT and would like an antidepressant. Also complained of some vague abd pains/discomfort. On eval,. pt was anxious and c/o feeling very depressed, also c/o vaginal and abdominal pain for which she reported seeing 3 diff MDs about in past, and indicated this pain occurred chronically intermittently and was not new/acute. T /a this being 2nd hosp, first when 26yo. Was concerned about her meds being changed after feeling she was stable on Trileptal 300/600 for 15yrs. States having passive SI. Reviewed meds and recent med changes. Reassured about changes, and that there may be a period of adjustment after a longstanding med has been removed, and encouraged to ask for prns avail to help with transition. Also talked with RN about this, and recommended pt get a prn ativan despite prn seroquel given within the hour. Checked back with patient later in evening and pt felt improved. Also had roommate change and seems to be getting along very well with her. MSE: older CF, pleasant, nml speech, slight tremor seemed anxiety related, affect anxious, mood anxious/depressed, voicing some passive SI but no plan/ intent, denied psychotic sxs, and cognition seemed conversationally intact although not formally tested. No evid of delirium. i/j fair. PLAN: encouraged pt to request prn seroquel a couple of times/day as body gets used to recent med changes. seemed to calm with encouragement/reassurance. also has prn ativan if absolutely necessary. continue outpt ECT as planned 02/26/17 16:58 per staff, pt slept 11hrs noted playing Scrabble with roommate and enjoying self. full/bright affect, smiling often and occasionally joking. reports yesterday was worst she felt in years, "the lowest depression" she felt after ECT. Initially planned to cancel ECT, but now reconsidering. Roommate ending ECT treatments with + reports about effects, and pt seemed more encouraged. Also felt prns helped. Seems with less somatic complains when less anxious. MSE: calm, coop, nml speech rate/vol, not pressured, good eye contact, neatly kempt, casually dressed, enjoying interaction w/roommate playing scrabble. no psychosis, no current si, no hi. PLAN: -cont meds as Rxd. used seroquel 12.5+ ativan 1mg today at 13:00. -cont with reassurance/support -seems to enjoy her roommate, who is leaving tomorrow. may overall feel better having a roommate on the unit as well Objective: Vital Signs Temp Pulse Resp BP Pulse Ox 36.3 C 79 14 134/64 H 96 02/26/17 20:00 02/26/17 20:00 02/26/17 20:00 02/26/17 20:00 02/26/17 20:00 Laboratory Results 02/24/17 06:00 - Pending Discharge Pending Discharge Within 24 Hours: No Pending Discharge Within 48 Hours: No ICD10 Worksheet Patient Problems: Problems Problem Status Onset Depression Acute
[2017-02-27] MEDS ORDERED: CITRIC ACID/SODIUM CITRATE 30 ML UDCUP PO ONE (04:00)
[2017-02-27] MEDS ORDERED: LIDOCAINE 2% 5 ML SDV ID ONE (04:00)
[2017-02-27] MEDS ORDERED: ONDANSETRON DISINTEGRATING 4 MG TAB PO ONE (04:00)
[2017-02-27] MEDS ORDERED: NS 1,000 ML IV ONE (04:00)
[2017-02-27] MEDS ORDERED: ROCURONIUM 50 MG/5 ML VIAL ONE (05:58)
[2017-02-27] MEDS ORDERED: ETOMIDATE 20 MG/10 ML VIAL ONE (05:58)
[2017-02-27] MEDS ORDERED: fentaNYL 100 MCG/2 ML INJ ONE (05:58)
[2017-02-27] MEDS ORDERED: ONDANSETRON 4 MG/2 ML VIAL ONE (05:58)
[2017-02-27] MEDS ORDERED: MIDAZOLAM 2 MG/2 ML VIAL ONE (05:58)
[2017-02-27] MEDS ORDERED: GLYCOPYRROLATE 0.2 MG/1 ML VIAL ONE (05:58)
[2017-02-27] MEDS ORDERED: SUCCINYLCHOLINE CHLORIDE 200 MG/10 ML VIAL ONE (05:58)
[2017-02-27] MEDS: CHLORTHALIDONE 25 MG TAB PO SCH (08:08)
[2017-02-27] MEDS: METOPROLOL TARTRATE 100 MG TAB PO SCH ×2 (08:09→21:09)
[2017-02-27] MEDS: amLODIPine BESYLATE 5 MG TAB PO SCH (08:10)
[2017-02-27] MEDS: LOSARTAN POTASSIUM 50 MG TAB PO SCH (08:10)
[2017-02-27] MEDS ORDERED: ONDANSETRON DISINTEGRATING 4 MG TAB ONE (10:12)
[2017-02-27] MEDS ORDERED: CITRIC ACID/SODIUM CITRATE 30 ML UDCUP ONE (10:12)
[2017-02-27] MEDS ORDERED: QUEtiapine FUMARATE 25 MG TAB PO SCH (10:46)
[2017-02-27] MEDS ORDERED: IBUPROFEN 600 MG TAB PO PRN (10:47)
[2017-02-27] MEDS ORDERED: HYDROCODONE/APAP 5/325 TAB PO PRN (10:47)
[2017-02-27] MEDS ORDERED: ONDANSETRON DISINTEGRATING 4 MG TAB PO PRN (10:47)
--- NOTE | 2017-02-27 11:21 | SOAPPROG ---
SOAP Progress Note Assessment/Plan: Assessment: Bipolar II, depressed with history of psychotic fx, Cognitive D/O nos ( secondary to meds, Hyponatremia, mood state and/or incipient vascular dementing process), Pain D/O, HTN, Vulvodynia, hyperlipidemia Plan:Met with pt today for 25 min. She is upset about not getting started with ECT today and understands MDs explanation of risks involved with low Na. She responded to seroquel with adequate sleep. She is quite anxious today and has notable hand tremor which could be c/w withdrawal from benzo and trileptal. I have her on essentially a CWAS in that she is being checked q4 hour with VS and for tremulousness with a prn order to give ativan for increased BP, P, or tremor. Will have RN dose her now. Will call son Esequiel re plan and to update him and provide psychoed re ECT. Will have hospitalist consult re Na (which has come up to 127) to ascertain if there might be an etiology other than Trileptal SE. Pt denies polydipsia,for instance. WOuld expect she be re-started on Statin given Lipids and other CAD risk factors, along with MRI findings. Checking HgA1C due to glucose result of CMP 02/22/17 13:23 02/23/17 14:39 Met with pt twice today. Discussed with RN. Pt remains dysphoric, perplexed, anxious and indecisive. MD expressed uncertainty about starting ECT tomorrow vs holding off and giving med approach, as discussed with Dr Kaplan, a try. THese meds include adding Li and LMT to regimen. She had good response to Li historcially and went off of it for no clear reason years ago. My ambiguity was difficult for her and she kept repeating "I'm leaving it up to you...I trust you ". I will have RN do cognitive testing more reliable and sensitive than a MMSE. The presence of dementia-like findings does not prohibit the use of ECT, but puts pt at risk for greater cognitive impact, including delirium. Na level is improving off Trileptal. I greatly appreciate Dr Renteria's thorough eval around this and other issues.. HgA1c point to pre-diabetic changes. Would likely benefit from statin, krishna as she had been on one and became n/c for unclear reasons (not side effects). Will re Check Na one more time tomorrow, review cognitive testing results and decide whether to start ECT Monday. Will keep NPO to cover that possiblity. 02/24/17 12:56 Pt agreed to start RUL ECT today, stating her mood and anxiety were only worsening. Her Na level is up to 133 and her score on the Kevin Cognitive Assessment was 26/30 with points off for recall of 5 words after 5 minutes. Her only real deficit was STM, other cognitive functions remain intact. Again, this can be meds, mood illness, or vascular insult. No contraindication to doing ECT, but does put pt at higher risk of delirium. May need to do 2x/week ECT to mitigate that risk. I will restart her Lipitor. Reviewed with RN the rationale to do q 4 hour VS; namely, to assess for possible withdrawal from Xanax and Trileptal and use ativan to address symptoms of autonomic hyperarousal 02/27/17 11:15 Read MD, CC and RN notes from weekend. Pt had no evidence of MS change. Subjectively feels worse mood/anxiety billy, which I suspect is a function of d/ c trileptal and xanax leading to some w/d phenomenon. And, ECT is not the cause of worsening; it simply would not be helping yet. Pt wanted to discuss whether she has ADHD as "ECT does not help that" I educated her that her mood disorder is prominent, and that her cognitive symptoms were far more likely a function of her mood, meds and vascular brain changes than "ADHD". Plan cont acute RUL ECT and will increase seroquel at hs to 50 mg. May go higher if tolerated. Pt does have generalized itching with no rash. Only new meds, other than procedure related, are LMT and seroquel. Will observe for rash or worsening. Objective: Vital Signs Temp Pulse Resp BP Pulse Ox 36.6 C 83 14 125/71 H 94 02/27/17 08:17 02/27/17 09:12 02/27/17 09:12 02/27/17 09:12 02/27/17 08:17 Laboratory Results 02/24/17 06:00 ICD10 Worksheet Patient Problems: Problems Problem Status Onset Depression Acute
[2017-02-27] MEDS: ATORVASTATIN CALCIUM 10 MG TAB PO SCH (21:06)
[2017-02-27] MEDS: lamoTRIgine 25 MG TAB PO SCH (21:06)
[2017-02-27] MEDS: LIDOCAINE 2% JELLY 5 ML TUBE TP PRN (21:17)
[2017-02-28] MEDS: METOPROLOL TARTRATE 100 MG TAB PO SCH ×2 (08:34→20:59)
[2017-02-28] MEDS: LOSARTAN POTASSIUM 50 MG TAB PO SCH (08:34)
[2017-02-28] MEDS: CHLORTHALIDONE 25 MG TAB PO SCH (08:35)
[2017-02-28] MEDS: amLODIPine BESYLATE 5 MG TAB PO SCH (08:35)
[2017-02-28] MEDS: LIDOCAINE 2% JELLY 5 ML TUBE TP PRN (10:04)
[2017-02-28] MEDS ORDERED: QUEtiapine FUMARATE 25 MG TAB PO SCH (12:23)
--- NOTE | 2017-02-28 12:26 | SOAPPROG ---
SOAP Progress Note Assessment/Plan: Assessment: Bipolar II, depressed with history of psychotic fx, Cognitive D/O nos ( secondary to meds, Hyponatremia, mood state and/or incipient vascular dementing process), Pain D/O, HTN, Vulvodynia, hyperlipidemia Plan:Met with pt today for 25 min. She is upset about not getting started with ECT today and understands MDs explanation of risks involved with low Na. She responded to seroquel with adequate sleep. She is quite anxious today and has notable hand tremor which could be c/w withdrawal from benzo and trileptal. I have her on essentially a CWAS in that she is being checked q4 hour with VS and for tremulousness with a prn order to give ativan for increased BP, P, or tremor. Will have RN dose her now. Will call son Esequiel re plan and to update him and provide psychoed re ECT. Will have hospitalist consult re Na (which has come up to 127) to ascertain if there might be an etiology other than Trileptal SE. Pt denies polydipsia,for instance. WOuld expect she be re-started on Statin given Lipids and other CAD risk factors, along with MRI findings. Checking HgA1C due to glucose result of CMP 02/22/17 13:23 02/23/17 14:39 Met with pt twice today. Discussed with RN. Pt remains dysphoric, perplexed, anxious and indecisive. MD expressed uncertainty about starting ECT tomorrow vs holding off and giving med approach, as discussed with Dr Kaplan, a try. THese meds include adding Li and LMT to regimen. She had good response to Li historcially and went off of it for no clear reason years ago. My ambiguity was difficult for her and she kept repeating "I'm leaving it up to you...I trust you ". I will have RN do cognitive testing more reliable and sensitive than a MMSE. The presence of dementia-like findings does not prohibit the use of ECT, but puts pt at risk for greater cognitive impact, including delirium. Na level is improving off Trileptal. I greatly appreciate Dr Renteria's thorough eval around this and other issues.. HgA1c point to pre-diabetic changes. Would likely benefit from statin, krishna as she had been on one and became n/c for unclear reasons (not side effects). Will re Check Na one more time tomorrow, review cognitive testing results and decide whether to start ECT Monday. Will keep NPO to cover that possiblity. 02/24/17 12:56 Pt agreed to start RUL ECT today, stating her mood and anxiety were only worsening. Her Na level is up to 133 and her score on the Kevin Cognitive Assessment was 26/30 with points off for recall of 5 words after 5 minutes. Her only real deficit was STM, other cognitive functions remain intact. Again, this can be meds, mood illness, or vascular insult. No contraindication to doing ECT, but does put pt at higher risk of delirium. May need to do 2x/week ECT to mitigate that risk. I will restart her Lipitor. Reviewed with RN the rationale to do q 4 hour VS; namely, to assess for possible withdrawal from Xanax and Trileptal and use ativan to address symptoms of autonomic hyperarousal 02/27/17 11:15 Read , CC and RN notes from weekend. Pt had no evidence of MS change. Subjectively feels worse mood/anxiety billy, which I suspect is a function of d/ c trileptal and xanax leading to some w/d phenomenon. And, ECT is not the cause of worsening; it simply would not be helping yet. Pt wanted to discuss whether she has ADHD as "ECT does not help that" I educated her that her mood disorder is prominent, and that her cognitive symptoms were far more likely a function of her mood, meds and vascular brain changes than "ADHD". Plan cont acute RUL ECT and will increase seroquel at hs to 50 mg. May go higher if tolerated. Pt does have generalized itching with no rash. Only new meds, other than procedure related, are LMT and seroquel. Will observe for rash or worsening. 02/28/17 12:23 Pt feels more depressed "than ever" in last few days. Her affect is not entirely congruent with that, but she does indeed look more constricted. Slept a bit better with increase in seroquel to 50 mg. Will push to 75 and attempt to titrate to dose that may have AD effects and not simply anxiolytic and soporific effects. Feels the generalized itchiness. No rash. Will cont to monitor. Pt reassured that mood and anxiety symptoms are increased likely due to d/c benzo and trileptal. Objective: Vital Signs Temp Pulse Resp BP Pulse Ox 36.7 C 78 16 126/69 H 97 02/28/17 04:00 02/28/17 08:34 02/28/17 08:30 02/28/17 08:35 02/28/17 08:30 Laboratory Results 02/24/17 06:00 ICD10 Worksheet Patient Problems: Problems Problem Status Onset Depression Acute
[2017-02-28] MEDS: ATORVASTATIN CALCIUM 10 MG TAB PO SCH (20:59)
[2017-02-28] MEDS: lamoTRIgine 25 MG TAB PO SCH (20:59)
[2017-02-28] MEDS: CEPACOL LOZENGE PO PRN (21:07)
[2017-03-01] MEDS ORDERED: CITRIC ACID/SODIUM CITRATE 30 ML UDCUP PO ONE (04:00)
[2017-03-01] MEDS ORDERED: LIDOCAINE 2% 5 ML SDV ID ONE (04:00)
[2017-03-01] MEDS ORDERED: ONDANSETRON DISINTEGRATING 4 MG TAB PO ONE (04:00)
[2017-03-01] MEDS ORDERED: NS 1,000 ML IV ONE (04:00)
[2017-03-01] MEDS ORDERED: ONDANSETRON 4 MG/2 ML VIAL ONE (07:04)
[2017-03-01] MEDS ORDERED: MIDAZOLAM 2 MG/2 ML VIAL ONE (07:04)
[2017-03-01] MEDS ORDERED: ETOMIDATE 20 MG/10 ML VIAL ONE (07:04)
[2017-03-01] MEDS ORDERED: GLYCOPYRROLATE 0.2 MG/1 ML VIAL ONE (07:04)
[2017-03-01] MEDS ORDERED: fentaNYL 100 MCG/2 ML INJ ONE (07:04)
[2017-03-01] MEDS ORDERED: SUCCINYLCHOLINE CHLORIDE 200 MG/10 ML VIAL ONE (07:05)
[2017-03-01] MEDS ORDERED: ROCURONIUM 50 MG/5 ML VIAL ONE (07:05)
[2017-03-01] MEDS: amLODIPine BESYLATE 5 MG TAB PO SCH (08:41)
[2017-03-01] MEDS: CHLORTHALIDONE 25 MG TAB PO SCH (08:42)
[2017-03-01] MEDS: LOSARTAN POTASSIUM 50 MG TAB PO SCH (08:43)
[2017-03-01] MEDS: METOPROLOL TARTRATE 100 MG TAB PO SCH ×2 (09:01→21:16)
[2017-03-01] MEDS ORDERED: ONDANSETRON DISINTEGRATING 4 MG TAB ONE (10:27)
[2017-03-01] MEDS ORDERED: CITRIC ACID/SODIUM CITRATE 30 ML UDCUP ONE (10:27)
[2017-03-01] MEDS ORDERED: IBUPROFEN 600 MG TAB PO PRN (12:35)
[2017-03-01] MEDS ORDERED: ONDANSETRON DISINTEGRATING 4 MG TAB PO PRN (12:35)
[2017-03-01] MEDS ORDERED: HYDROCODONE/APAP 5/325 TAB PO PRN (12:35)
[2017-03-01] MEDS ORDERED: lamoTRIgine 25 MG TAB PO SCH (12:35)
--- NOTE | 2017-03-01 12:44 | SOAPPROG ---
SOAP Progress Note Assessment/Plan: Assessment: Bipolar II, depressed with history of psychotic fx, Cognitive D/O nos ( secondary to meds, Hyponatremia, mood state and/or incipient vascular dementing process), Pain D/O, HTN, Vulvodynia, hyperlipidemia Plan:Met with pt today for 25 min. She is upset about not getting started with ECT today and understands MDs explanation of risks involved with low Na. She responded to seroquel with adequate sleep. She is quite anxious today and has notable hand tremor which could be c/w withdrawal from benzo and trileptal. I have her on essentially a CWAS in that she is being checked q4 hour with VS and for tremulousness with a prn order to give ativan for increased BP, P, or tremor. Will have RN dose her now. Will call son Esequiel re plan and to update him and provide psychoed re ECT. Will have hospitalist consult re Na (which has come up to 127) to ascertain if there might be an etiology other than Trileptal SE. Pt denies polydipsia,for instance. WOuld expect she be re-started on Statin given Lipids and other CAD risk factors, along with MRI findings. Checking HgA1C due to glucose result of CMP 02/22/17 13:23 02/23/17 14:39 Met with pt twice today. Discussed with RN. Pt remains dysphoric, perplexed, anxious and indecisive. MD expressed uncertainty about starting ECT tomorrow vs holding off and giving med approach, as discussed with Dr Kaplan, a try. THese meds include adding Li and LMT to regimen. She had good response to Li historcially and went off of it for no clear reason years ago. My ambiguity was difficult for her and she kept repeating "I'm leaving it up to you...I trust you ". I will have RN do cognitive testing more reliable and sensitive than a MMSE. The presence of dementia-like findings does not prohibit the use of ECT, but puts pt at risk for greater cognitive impact, including delirium. Na level is improving off Trileptal. I greatly appreciate Dr Renteria's thorough eval around this and other issues.. HgA1c point to pre-diabetic changes. Would likely benefit from statin, krishna as she had been on one and became n/c for unclear reasons (not side effects). Will re Check Na one more time tomorrow, review cognitive testing results and decide whether to start ECT Monday. Will keep NPO to cover that possiblity. 02/24/17 12:56 Pt agreed to start RUL ECT today, stating her mood and anxiety were only worsening. Her Na level is up to 133 and her score on the Kevin Cognitive Assessment was 26/30 with points off for recall of 5 words after 5 minutes. Her only real deficit was STM, other cognitive functions remain intact. Again, this can be meds, mood illness, or vascular insult. No contraindication to doing ECT, but does put pt at higher risk of delirium. May need to do 2x/week ECT to mitigate that risk. I will restart her Lipitor. Reviewed with RN the rationale to do q 4 hour VS; namely, to assess for possible withdrawal from Xanax and Trileptal and use ativan to address symptoms of autonomic hyperarousal 02/27/17 11:15 Read , CC and RN notes from weekend. Pt had no evidence of MS change. Subjectively feels worse mood/anxiety billy, which I suspect is a function of d/ c trileptal and xanax leading to some w/d phenomenon. And, ECT is not the cause of worsening; it simply would not be helping yet. Pt wanted to discuss whether she has ADHD as "ECT does not help that" I educated her that her mood disorder is prominent, and that her cognitive symptoms were far more likely a function of her mood, meds and vascular brain changes than "ADHD". Plan cont acute RUL ECT and will increase seroquel at hs to 50 mg. May go higher if tolerated. Pt does have generalized itching with no rash. Only new meds, other than procedure related, are LMT and seroquel. Will observe for rash or worsening. 02/28/17 12:23 Pt feels more depressed "than ever" in last few days. Her affect is not entirely congruent with that, but she does indeed look more constricted. Slept a bit better with increase in seroquel to 50 mg. Will push to 75 and attempt to titrate to dose that may have AD effects and not simply anxiolytic and soporific effects. Feels the generalized itchiness. No rash. Will cont to monitor. Pt reassured that mood and anxiety symptoms are increased likely due to d/c benzo and trileptal. 03/01/17 12:38 Pt still feels worse mood billy and pain billy. Objecdrtively, she appears in no greater distress, psychically or physically. Slept better still with seroquel 75 without akithesia or over sedation. Will push dose to 100 mg. Will also increase LMT to 50 given it has been one week at 25. Will add theophylline due to a bit short on Motor seizure.. No signs of prominent worsening cognitively. She is A and O times 3 and recall doctors name, why she is here, etc. I believe however she is amnestic in terms of her pre ECT baseline of functioning and level of symptomatology rendering her ability to contrast her present state with one two weeks ago unreliable. I shared this in phone visit with daughter, instructing Her to provide me her own impressions of how she thinks her mother is doing as she knows her clearly better than I do. I also reviewed the 24/ supervision requirements necessaryFor her mother upon discharge.I made it clear that thatDid not have to involve assisted living if the family could accomplish it Objective: Vital Signs Temp Pulse Resp BP Pulse Ox 36.3 C 54 L 12 141/61 H 93 03/01/17 12:00 03/01/17 12:00 03/01/17 12:00 03/01/17 12:00 03/01/17 12:00 Laboratory Results 02/24/17 06:00 ICD10 Worksheet Patient Problems: Problems Problem Status Onset Depression Acute
[2017-03-01] MEDS: QUEtiapine FUMARATE 25 MG TAB PO PRN (14:37)
[2017-03-01] MEDS: LORazepam 0.5 MG TAB PO PRN (15:28)
[2017-03-01] MEDS: ATORVASTATIN CALCIUM 10 MG TAB PO SCH (21:15)
[2017-03-01] MEDS: QUEtiapine FUMARATE 25 MG TAB PO SCH (21:15)
[2017-03-01 21:17] LABS: ANION GAP 11 mEq/L (8-16); CALCIUM 9.6 mg/dL (8.5-10.4); CARBON DIOXIDE 26 mEq/l (22-31); CHLORIDE 95 mEq/L (97-110); CREATININE 0.8 mg/dL (0.6-1.0); GLOMERULAR FILTRATION RATE > 60; GLUCOSE 103 mg/dL (70-100); POTASSIUM 4.7 mEq/L (3.5-5.2); SODIUM 132 mEq/L (134-144)
[2017-03-02] MEDS: LOSARTAN POTASSIUM 50 MG TAB PO SCH (08:56)
[2017-03-02] MEDS: amLODIPine BESYLATE 5 MG TAB PO SCH (08:57)
[2017-03-02] MEDS: METOPROLOL TARTRATE 100 MG TAB PO SCH ×2 (08:57→20:38)
[2017-03-02] MEDS: CHLORTHALIDONE 25 MG TAB PO SCH (08:58)
[2017-03-02] MEDS: LIDOCAINE 2% JELLY 5 ML TUBE TP PRN (13:31)
--- NOTE | 2017-03-02 15:17 | SOAPPROG ---
SOAP Progress Note Assessment/Plan: Assessment: Bipolar II, depressed with history of psychotic fx, Cognitive D/O nos ( secondary to meds, Hyponatremia, mood state and/or incipient vascular dementing process), Pain D/O, HTN, Vulvodynia, hyperlipidemia Plan:Met with pt today for 25 min. She is upset about not getting started with ECT today and understands MDs explanation of risks involved with low Na. She responded to seroquel with adequate sleep. She is quite anxious today and has notable hand tremor which could be c/w withdrawal from benzo and trileptal. I have her on essentially a CWAS in that she is being checked q4 hour with VS and for tremulousness with a prn order to give ativan for increased BP, P, or tremor. Will have RN dose her now. Will call son Esequiel re plan and to update him and provide psychoed re ECT. Will have hospitalist consult re Na (which has come up to 127) to ascertain if there might be an etiology other than Trileptal SE. Pt denies polydipsia,for instance. WOuld expect she be re-started on Statin given Lipids and other CAD risk factors, along with MRI findings. Checking HgA1C due to glucose result of CMP 02/22/17 13:23 02/23/17 14:39 Met with pt twice today. Discussed with RN. Pt remains dysphoric, perplexed, anxious and indecisive. MD expressed uncertainty about starting ECT tomorrow vs holding off and giving med approach, as discussed with Dr Kaplan, a try. THese meds include adding Li and LMT to regimen. She had good response to Li historcially and went off of it for no clear reason years ago. My ambiguity was difficult for her and she kept repeating "I'm leaving it up to you...I trust you ". I will have RN do cognitive testing more reliable and sensitive than a MMSE. The presence of dementia-like findings does not prohibit the use of ECT, but puts pt at risk for greater cognitive impact, including delirium. Na level is improving off Trileptal. I greatly appreciate Dr Renteria's thorough eval around this and other issues.. HgA1c point to pre-diabetic changes. Would likely benefit from statin, krishna as she had been on one and became n/c for unclear reasons (not side effects). Will re Check Na one more time tomorrow, review cognitive testing results and decide whether to start ECT Monday. Will keep NPO to cover that possiblity. 02/24/17 12:56 Pt agreed to start RUL ECT today, stating her mood and anxiety were only worsening. Her Na level is up to 133 and her score on the Kevin Cognitive Assessment was 26/30 with points off for recall of 5 words after 5 minutes. Her only real deficit was STM, other cognitive functions remain intact. Again, this can be meds, mood illness, or vascular insult. No contraindication to doing ECT, but does put pt at higher risk of delirium. May need to do 2x/week ECT to mitigate that risk. I will restart her Lipitor. Reviewed with RN the rationale to do q 4 hour VS; namely, to assess for possible withdrawal from Xanax and Trileptal and use ativan to address symptoms of autonomic hyperarousal 02/27/17 11:15 Read , CC and RN notes from weekend. Pt had no evidence of MS change. Subjectively feels worse mood/anxiety billy, which I suspect is a function of d/ c trileptal and xanax leading to some w/d phenomenon. And, ECT is not the cause of worsening; it simply would not be helping yet. Pt wanted to discuss whether she has ADHD as "ECT does not help that" I educated her that her mood disorder is prominent, and that her cognitive symptoms were far more likely a function of her mood, meds and vascular brain changes than "ADHD". Plan cont acute RUL ECT and will increase seroquel at hs to 50 mg. May go higher if tolerated. Pt does have generalized itching with no rash. Only new meds, other than procedure related, are LMT and seroquel. Will observe for rash or worsening. 02/28/17 12:23 Pt feels more depressed "than ever" in last few days. Her affect is not entirely congruent with that, but she does indeed look more constricted. Slept a bit better with increase in seroquel to 50 mg. Will push to 75 and attempt to titrate to dose that may have AD effects and not simply anxiolytic and soporific effects. Feels the generalized itchiness. No rash. Will cont to monitor. Pt reassured that mood and anxiety symptoms are increased likely due to d/c benzo and trileptal. 03/01/17 12:38 Pt still feels worse mood billy and pain billy. Objecdrtively, she appears in no greater distress, psychically or physically. Slept better still with seroquel 75 without akithesia or over sedation. Will push dose to 100 mg. Will also increase LMT to 50 given it has been one week at 25. Will add theophylline due to a bit short on Motor seizure.. No signs of prominent worsening cognitively. She is A and O times 3 and recall doctors name, why she is here, etc. I believe however she is amnestic in terms of her pre ECT baseline of functioning and level of symptomatology rendering her ability to contrast her present state with one two weeks ago unreliable. I shared this in phone visit with daughter, instructing Her to provide me her own impressions of how she thinks her mother is doing as she knows her clearly better than I do. I also reviewed the / supervision requirements necessaryFor her mother upon discharge.I made it clear that thatDid not have to involve assisted living if the family could accomplish it 03/02/17 15:14 Met with pt for 25 min. Pt appears superficially bright and able to smile but inwardly depressed and still focused on pelvic pain. Sleep is good with seroquel 100 mg. No sedation/akithesia/EPS/TD. No signs of delirium. Still with generalized pruritis which may be seroquel vs LMT v ECT related med/ anesthesia. May try other pain meds. Remains amnestic for how she really felt or was functioning pre admit/ECT, hence not allowing for reliable assessment of change from her. Will access info from daughter or sons about their impression. Cont RUL ECT Objective: Vital Signs Temp Pulse Resp BP Pulse Ox 36.4 C 79 16 123/58 H 97 03/02/17 08:56 03/02/17 08:57 03/02/17 00:30 03/02/17 08:58 03/02/17 08:56 Laboratory Results 03/01/17 17:40 ICD10 Worksheet Patient Problems: Problems Problem Status Onset Depression Acute
[2017-03-02] MEDS: lamoTRIgine 25 MG TAB PO SCH (17:32)
[2017-03-02] MEDS: PSYLLIUM METAMUCIL 1 PKT PO SCH (20:37)
[2017-03-02] MEDS: DOCUSATE SODIUM 100 MG CAP PO SCH (20:37)
[2017-03-02] MEDS: ATORVASTATIN CALCIUM 10 MG TAB PO SCH (20:38)
[2017-03-02] MEDS: QUEtiapine FUMARATE 25 MG TAB PO SCH (20:38)
[2017-03-03] MEDS ORDERED: THEOPHYLLINE ORAL SOLUTION 80 MG/15 ML UDCUP PO ONE (04:00)
[2017-03-03] MEDS ORDERED: LIDOCAINE 2% 5 ML SDV ID ONE (04:00)
[2017-03-03] MEDS ORDERED: ONDANSETRON DISINTEGRATING 4 MG TAB PO ONE (04:00)
[2017-03-03] MEDS ORDERED: NS 1,000 ML IV ONE (04:00)
[2017-03-03] MEDS ORDERED: CITRIC ACID/SODIUM CITRATE 30 ML UDCUP PO ONE (04:00)
[2017-03-03] MEDS ORDERED: MIDAZOLAM 2 MG/2 ML VIAL ONE (05:29)
[2017-03-03] MEDS ORDERED: GLYCOPYRROLATE 0.2 MG/1 ML VIAL ONE (05:29)
[2017-03-03] MEDS ORDERED: fentaNYL 100 MCG/2 ML INJ ONE (05:29)
[2017-03-03] MEDS ORDERED: ONDANSETRON 4 MG/2 ML VIAL ONE (05:30)
[2017-03-03] MEDS ORDERED: ROCURONIUM 50 MG/5 ML VIAL ONE (05:30)
[2017-03-03] MEDS ORDERED: SUCCINYLCHOLINE CHLORIDE 200 MG/10 ML VIAL ONE (05:30)
[2017-03-03] MEDS ORDERED: ETOMIDATE 20 MG/10 ML VIAL ONE (05:30)
[2017-03-03] MEDS: METOPROLOL TARTRATE 100 MG TAB PO SCH ×2 (07:44→20:54)
[2017-03-03] MEDS: CHLORTHALIDONE 25 MG TAB PO SCH (07:45)
[2017-03-03] MEDS: amLODIPine BESYLATE 5 MG TAB PO SCH (07:45)
[2017-03-03] MEDS: LOSARTAN POTASSIUM 50 MG TAB PO SCH (07:45)
[2017-03-03] MEDS ORDERED: IBUPROFEN 600 MG TAB PO PRN (10:20)
[2017-03-03] MEDS ORDERED: HYDROCODONE/APAP 5/325 TAB PO PRN (10:20)
[2017-03-03] MEDS ORDERED: ONDANSETRON DISINTEGRATING 4 MG TAB PO PRN (10:20)
--- NOTE | 2017-03-03 10:26 | SOAPPROG ---
SOAP Progress Note Assessment/Plan: Assessment: Bipolar II, depressed with history of psychotic fx, Cognitive D/O nos ( secondary to meds, Hyponatremia, mood state and/or incipient vascular dementing process), Pain D/O, HTN, Vulvodynia, hyperlipidemia Plan:Met with pt today for 25 min. She is upset about not getting started with ECT today and understands MDs explanation of risks involved with low Na. She responded to seroquel with adequate sleep. She is quite anxious today and has notable hand tremor which could be c/w withdrawal from benzo and trileptal. I have her on essentially a CWAS in that she is being checked q4 hour with VS and for tremulousness with a prn order to give ativan for increased BP, P, or tremor. Will have RN dose her now. Will call son Esequiel re plan and to update him and provide psychoed re ECT. Will have hospitalist consult re Na (which has come up to 127) to ascertain if there might be an etiology other than Trileptal SE. Pt denies polydipsia,for instance. WOuld expect she be re-started on Statin given Lipids and other CAD risk factors, along with MRI findings. Checking HgA1C due to glucose result of CMP 02/22/17 13:23 02/23/17 14:39 Met with pt twice today. Discussed with RN. Pt remains dysphoric, perplexed, anxious and indecisive. MD expressed uncertainty about starting ECT tomorrow vs holding off and giving med approach, as discussed with Dr Kaplan, a try. THese meds include adding Li and LMT to regimen. She had good response to Li historcially and went off of it for no clear reason years ago. My ambiguity was difficult for her and she kept repeating "I'm leaving it up to you...I trust you ". I will have RN do cognitive testing more reliable and sensitive than a MMSE. The presence of dementia-like findings does not prohibit the use of ECT, but puts pt at risk for greater cognitive impact, including delirium. Na level is improving off Trileptal. I greatly appreciate Dr Renteria's thorough eval around this and other issues.. HgA1c point to pre-diabetic changes. Would likely benefit from statin, krishna as she had been on one and became n/c for unclear reasons (not side effects). Will re Check Na one more time tomorrow, review cognitive testing results and decide whether to start ECT Monday. Will keep NPO to cover that possiblity. 02/24/17 12:56 Pt agreed to start RUL ECT today, stating her mood and anxiety were only worsening. Her Na level is up to 133 and her score on the Kevin Cognitive Assessment was 26/30 with points off for recall of 5 words after 5 minutes. Her only real deficit was STM, other cognitive functions remain intact. Again, this can be meds, mood illness, or vascular insult. No contraindication to doing ECT, but does put pt at higher risk of delirium. May need to do 2x/week ECT to mitigate that risk. I will restart her Lipitor. Reviewed with RN the rationale to do q 4 hour VS; namely, to assess for possible withdrawal from Xanax and Trileptal and use ativan to address symptoms of autonomic hyperarousal 02/27/17 11:15 Read , CC and RN notes from weekend. Pt had no evidence of MS change. Subjectively feels worse mood/anxiety billy, which I suspect is a function of d/ c trileptal and xanax leading to some w/d phenomenon. And, ECT is not the cause of worsening; it simply would not be helping yet. Pt wanted to discuss whether she has ADHD as "ECT does not help that" I educated her that her mood disorder is prominent, and that her cognitive symptoms were far more likely a function of her mood, meds and vascular brain changes than "ADHD". Plan cont acute RUL ECT and will increase seroquel at hs to 50 mg. May go higher if tolerated. Pt does have generalized itching with no rash. Only new meds, other than procedure related, are LMT and seroquel. Will observe for rash or worsening. 02/28/17 12:23 Pt feels more depressed "than ever" in last few days. Her affect is not entirely congruent with that, but she does indeed look more constricted. Slept a bit better with increase in seroquel to 50 mg. Will push to 75 and attempt to titrate to dose that may have AD effects and not simply anxiolytic and soporific effects. Feels the generalized itchiness. No rash. Will cont to monitor. Pt reassured that mood and anxiety symptoms are increased likely due to d/c benzo and trileptal. 03/01/17 12:38 Pt still feels worse mood billy and pain billy. Objecdrtively, she appears in no greater distress, psychically or physically. Slept better still with seroquel 75 without akithesia or over sedation. Will push dose to 100 mg. Will also increase LMT to 50 given it has been one week at 25. Will add theophylline due to a bit short on Motor seizure.. No signs of prominent worsening cognitively. She is A and O times 3 and recall doctors name, why she is here, etc. I believe however she is amnestic in terms of her pre ECT baseline of functioning and level of symptomatology rendering her ability to contrast her present state with one two weeks ago unreliable. I shared this in phone visit with daughter, instructing Her to provide me her own impressions of how she thinks her mother is doing as she knows her clearly better than I do. I also reviewed the 22/05 supervision requirements necessaryFor her mother upon discharge.I made it clear that thatDid not have to involve assisted living if the family could accomplish it 03/02/17 15:14 Met with pt for 25 min. Pt appears superficially bright and able to smile but inwardly depressed and still focused on pelvic pain. Sleep is good with seroquel 100 mg. No sedation/akithesia/EPS/TD. No signs of delirium. Still with generalized pruritis which may be seroquel vs LMT v ECT related med/ anesthesia. May try other pain meds. Remains amnestic for how she really felt or was functioning pre admit/ECT, hence not allowing for reliable assessment of change from her. Will access info from daughter or sons about their impression. Cont RUL ECT 03/03/17 10:23 Pt appears a bit brighter this am and indeed scores lower on cruz at 25 with question #9 re SI being zero for first time. Subjectively, she continues to assert she is still depressed and in pain pelvically. No delirium or clear worsening of her STM after 3 RUL ECTs. Pruritis unchanged. No rash. Will attempt higher dose of seroquel at 150 mg as she is not oversedated and not akithetic. Sleeps better with it. Higher dose may induce some actual mood change and not simply act as soporific. Plan Cont acute RUL ECT. Will cont Theophylline. Increase Seroquel Objective: Vital Signs Temp Pulse Resp BP Pulse Ox 36.1 C 65 16 140/80 H 96 03/03/17 10:06 03/03/17 10:06 03/03/17 10:06 03/03/17 10:06 03/03/17 10:06 Laboratory Results 03/01/17 17:40 ICD10 Worksheet Patient Problems: Problems Problem Status Onset Depression Acute
[2017-03-03] MEDS: PSYLLIUM METAMUCIL 1 PKT PO SCH ×2 (11:36→20:55)
[2017-03-03] MEDS: DOCUSATE SODIUM 100 MG CAP PO SCH ×2 (11:37→20:52)
[2017-03-03] MEDS: ATORVASTATIN CALCIUM 10 MG TAB PO SCH (20:52)
[2017-03-03] MEDS: lamoTRIgine 25 MG TAB PO SCH (20:53)
[2017-03-03] MEDS: QUEtiapine FUMARATE 25 MG TAB PO SCH (20:55)
[2017-03-04] MEDS: METOPROLOL TARTRATE 100 MG TAB PO SCH ×2 (08:42→20:35)
[2017-03-04] MEDS: LOSARTAN POTASSIUM 50 MG TAB PO SCH (08:43)
[2017-03-04] MEDS: DOCUSATE SODIUM 100 MG CAP PO SCH ×2 (08:43→20:33)
[2017-03-04] MEDS: CHLORTHALIDONE 25 MG TAB PO SCH (08:43)
[2017-03-04] MEDS: amLODIPine BESYLATE 5 MG TAB PO SCH (08:45)
[2017-03-04] MEDS: PSYLLIUM METAMUCIL 1 PKT PO SCH ×2 (08:45→20:40)
[2017-03-04] MEDS: LIDOCAINE 2% JELLY 5 ML TUBE TP PRN (09:56)
--- NOTE | 2017-03-04 17:39 | SOAPPROG ---
SOAP Progress Note Assessment/Plan: Assessment: Bipolar II, depressed with history of psychotic fx, Cognitive D/O nos ( secondary to meds, Hyponatremia, mood state and/or incipient vascular dementing process), Pain D/O, HTN, Vulvodynia, hyperlipidemia. Started unilat ECT on 02/24. 03/04/17 17:31 slept 9hr per staff. Still reports feeling depressed, doesn't think she is improved, knows ECT will take time, but clinically appears less depressed and with brighter affect and less anxious. States her family has commented on the same. Feels embarrased that many friends know she has been hospitalized, but acknowledges talking with them more openly has felt supportive. Daughter visited today, another will visit this pm. Denies med s/e, denies akathisia, denies other EPS sxs. States she slept very well last pm after Seroquel increase, "I was even yawning in group this morning ". 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 MSE: calm, coop, nml speech rate/vol, not pressured, good eye contact, neatly kempt, casually dressed, mood "I'm okay", affect full, no thought d/o, and denied any si/hi. cognitively intact conversationally. PLAN: -cont meds as Rxd, and ECT as scheduled Objective: Vital Signs Temp Pulse Resp BP Pulse Ox 36.6 C 67 16 136/71 H 94 03/04/17 16:00 03/04/17 16:00 03/04/17 16:00 03/04/17 16:00 03/04/17 16:00 Laboratory Results 03/01/17 17:40 - Time Spent With Patient Time Spent With Patient: 20min - Pending Discharge Pending Discharge Within 24 Hours: No Pending Discharge Within 48 Hours: No ICD10 Worksheet Patient Problems: Problems Problem Status Onset Depression Acute
[2017-03-04] MEDS: lamoTRIgine 25 MG TAB PO SCH (20:34)
[2017-03-04] MEDS: CALCIUM CARBONATE 500 MG CHEWABLE TAB PO PRN (20:35)
[2017-03-04] MEDS: ATORVASTATIN CALCIUM 10 MG TAB PO SCH (20:36)
[2017-03-04] MEDS: QUEtiapine FUMARATE 25 MG TAB PO SCH (20:37)
[2017-03-05] MEDS: PSYLLIUM METAMUCIL 1 PKT PO SCH ×2 (08:58→20:53)
[2017-03-05] MEDS: DOCUSATE SODIUM 100 MG CAP PO SCH ×2 (08:58→20:44)
[2017-03-05] MEDS: LOSARTAN POTASSIUM 50 MG TAB PO SCH (08:59)
[2017-03-05] MEDS: CHLORTHALIDONE 25 MG TAB PO SCH (08:59)
[2017-03-05] MEDS: amLODIPine BESYLATE 5 MG TAB PO SCH (09:01)
[2017-03-05] MEDS: METOPROLOL TARTRATE 100 MG TAB PO SCH ×2 (09:02→20:44)
[2017-03-05] MEDS: lamoTRIgine 25 MG TAB PO SCH (16:42)
[2017-03-05] MEDS: ATORVASTATIN CALCIUM 10 MG TAB PO SCH (20:33)
[2017-03-05] MEDS: QUEtiapine FUMARATE 25 MG TAB PO SCH (20:33)
--- NOTE | 2017-03-05 22:11 | SOAPPROG ---
SOAP Progress Note Assessment/Plan: Assessment: Bipolar II, depressed with history of psychotic fx, Cognitive D/O nos ( secondary to meds, Hyponatremia, mood state and/or incipient vascular dementing process), Pain D/O, HTN, Vulvodynia, hyperlipidemia. Started unilat ECT on 02/24. 03/04/17 17:31 slept 9hr per staff. Still reports feeling depressed, doesn't think she is improved, knows ECT will take time, but clinically appears less depressed and with brighter affect and less anxious. States her family has commented on the same. Feels embarrased that many friends know she has been hospitalized, but acknowledges talking with them more openly has felt supportive. Daughter visited today, another will visit this pm. Denies med s/e, denies akathisia, denies other EPS sxs. States she slept very well last pm after Seroquel increase, "I was even yawning in group this morning ". 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 MSE: calm, coop, nml speech rate/vol, not pressured, good eye contact, neatly kempt, casually dressed, mood "I'm okay", affect full, no thought d/o, and denied any si/hi. cognitively intact conversationally. PLAN: -cont meds as Rxd, and ECT as scheduled 03/05/17 18:13 per staff, slept 9hr. has been a bit more anxious since some peers d/cd and with presence of a couple of new admissions who are psychotic pt did report feeling safe on unit. denied medication side effects. still c/o depression. sleeping well. daughter visited and wants her to come home. states dtr missing her and also has depression. does feel hopeful for ECT to help depression. does feel depr worsened by chronic pain of vulvodynia. burning pain, "it feels like razors". uses cold pack for temporary relief. has seen "3 different doctors" and eventually was referred to PT. interested in any alternatives for relief. discussed relationship of chronic pain and depression MSE: calm, coop, engaging, nml speech rate/vol, good eye contact, mood still depressed, affect smiling/full, no thought d/o. no si/hi. some repeating of information she apparently forgot she told me yesterday. PLAN: -cont meds as Rxd, and ECT as scheduled -if outpt integrative pain management available, may be beneficial Objective: Vital Signs Temp Pulse Resp BP Pulse Ox 36.7 C 76 18 129/60 H 98 03/05/17 17:14 03/05/17 20:44 03/05/17 17:14 03/05/17 20:44 03/05/17 17:14 Laboratory Results 03/01/17 17:40 - Time Spent With Patient Time Spent With Patient: 20min - Pending Discharge Pending Discharge Within 24 Hours: No Pending Discharge Within 48 Hours: No ICD10 Worksheet Patient Problems: Problems Problem Status Onset Depression Acute
[2017-03-06] MEDS ORDERED: NS 1,000 ML IV ONE (04:00)
[2017-03-06] MEDS ORDERED: CITRIC ACID/SODIUM CITRATE 30 ML UDCUP PO ONE (04:00)
[2017-03-06] MEDS ORDERED: LIDOCAINE 2% 5 ML SDV ID ONE (04:00)
[2017-03-06] MEDS ORDERED: ONDANSETRON DISINTEGRATING 4 MG TAB PO ONE (04:00)
[2017-03-06] MEDS ORDERED: THEOPHYLLINE ORAL SOLUTION 80 MG/15 ML UDCUP PO ONE ×2 (04:00→08:00)
[2017-03-06] MEDS ORDERED: GLYCOPYRROLATE 0.2 MG/1 ML VIAL ONE (06:49)
[2017-03-06] MEDS ORDERED: SUCCINYLCHOLINE CHLORIDE 200 MG/10 ML VIAL ONE (06:49)
[2017-03-06] MEDS ORDERED: ETOMIDATE 20 MG/10 ML VIAL ONE (06:49)
[2017-03-06] MEDS ORDERED: MIDAZOLAM 2 MG/2 ML VIAL ONE (06:49)
[2017-03-06] MEDS ORDERED: fentaNYL 100 MCG/2 ML INJ ONE (06:49)
[2017-03-06] MEDS ORDERED: ONDANSETRON 4 MG/2 ML VIAL ONE (06:49)
[2017-03-06] MEDS ORDERED: ROCURONIUM 50 MG/5 ML VIAL ONE (06:49)
[2017-03-06] MEDS: METOPROLOL TARTRATE 100 MG TAB PO SCH ×2 (08:20→20:52)
[2017-03-06] MEDS: amLODIPine BESYLATE 5 MG TAB PO SCH (08:21)
[2017-03-06] MEDS: LOSARTAN POTASSIUM 50 MG TAB PO SCH (08:21)
[2017-03-06] MEDS ORDERED: CITRIC ACID/SODIUM CITRATE 30 ML UDCUP ONE (09:14)
[2017-03-06] MEDS ORDERED: ONDANSETRON DISINTEGRATING 4 MG TAB ONE (09:14)
[2017-03-06] MEDS: CHLORTHALIDONE 25 MG TAB PO SCH (09:31)
[2017-03-06] MEDS ORDERED: ONDANSETRON DISINTEGRATING 4 MG TAB PO PRN (10:55)
[2017-03-06] MEDS ORDERED: HYDROCODONE/APAP 5/325 TAB PO PRN (10:55)
--- NOTE | 2017-03-06 11:29 | SOAPPROG ---
SOAP Progress Note Assessment/Plan: Assessment: Bipolar II, depressed with history of psychotic fx, Cognitive D/O nos ( secondary to meds, Hyponatremia, mood state and/or incipient vascular dementing process), Pain D/O, HTN, Vulvodynia, hyperlipidemia Plan:Met with pt today for 25 min. She is upset about not getting started with ECT today and understands MDs explanation of risks involved with low Na. She responded to seroquel with adequate sleep. She is quite anxious today and has notable hand tremor which could be c/w withdrawal from benzo and trileptal. I have her on essentially a CWAS in that she is being checked q4 hour with VS and for tremulousness with a prn order to give ativan for increased BP, P, or tremor. Will have RN dose her now. Will call son Esequiel re plan and to update him and provide psychoed re ECT. Will have hospitalist consult re Na (which has come up to 127) to ascertain if there might be an etiology other than Trileptal SE. Pt denies polydipsia,for instance. WOuld expect she be re-started on Statin given Lipids and other CAD risk factors, along with MRI findings. Checking HgA1C due to glucose result of CMP 02/22/17 13:23 02/23/17 14:39 Met with pt twice today. Discussed with RN. Pt remains dysphoric, perplexed, anxious and indecisive. MD expressed uncertainty about starting ECT tomorrow vs holding off and giving med approach, as discussed with Dr Kaplan, a try. THese meds include adding Li and LMT to regimen. She had good response to Li historcially and went off of it for no clear reason years ago. My ambiguity was difficult for her and she kept repeating "I'm leaving it up to you...I trust you ". I will have RN do cognitive testing more reliable and sensitive than a MMSE. The presence of dementia-like findings does not prohibit the use of ECT, but puts pt at risk for greater cognitive impact, including delirium. Na level is improving off Trileptal. I greatly appreciate Dr Renteria's thorough eval around this and other issues.. HgA1c point to pre-diabetic changes. Would likely benefit from statin, krishna as she had been on one and became n/c for unclear reasons (not side effects). Will re Check Na one more time tomorrow, review cognitive testing results and decide whether to start ECT Monday. Will keep NPO to cover that possiblity. 02/24/17 12:56 Pt agreed to start RUL ECT today, stating her mood and anxiety were only worsening. Her Na level is up to 133 and her score on the Kevin Cognitive Assessment was 26/30 with points off for recall of 5 words after 5 minutes. Her only real deficit was STM, other cognitive functions remain intact. Again, this can be meds, mood illness, or vascular insult. No contraindication to doing ECT, but does put pt at higher risk of delirium. May need to do 2x/week ECT to mitigate that risk. I will restart her Lipitor. Reviewed with RN the rationale to do q 4 hour VS; namely, to assess for possible withdrawal from Xanax and Trileptal and use ativan to address symptoms of autonomic hyperarousal 02/27/17 11:15 Read , CC and RN notes from weekend. Pt had no evidence of MS change. Subjectively feels worse mood/anxiety billy, which I suspect is a function of d/ c trileptal and xanax leading to some w/d phenomenon. And, ECT is not the cause of worsening; it simply would not be helping yet. Pt wanted to discuss whether she has ADHD as "ECT does not help that" I educated her that her mood disorder is prominent, and that her cognitive symptoms were far more likely a function of her mood, meds and vascular brain changes than "ADHD". Plan cont acute RUL ECT and will increase seroquel at hs to 50 mg. May go higher if tolerated. Pt does have generalized itching with no rash. Only new meds, other than procedure related, are LMT and seroquel. Will observe for rash or worsening. 02/28/17 12:23 Pt feels more depressed "than ever" in last few days. Her affect is not entirely congruent with that, but she does indeed look more constricted. Slept a bit better with increase in seroquel to 50 mg. Will push to 75 and attempt to titrate to dose that may have AD effects and not simply anxiolytic and soporific effects. Feels the generalized itchiness. No rash. Will cont to monitor. Pt reassured that mood and anxiety symptoms are increased likely due to d/c benzo and trileptal. 03/01/17 12:38 Pt still feels worse mood billy and pain billy. Objecdrtively, she appears in no greater distress, psychically or physically. Slept better still with seroquel 75 without akithesia or over sedation. Will push dose to 100 mg. Will also increase LMT to 50 given it has been one week at 25. Will add theophylline due to a bit short on Motor seizure.. No signs of prominent worsening cognitively. She is A and O times 3 and recall doctors name, why she is here, etc. I believe however she is amnestic in terms of her pre ECT baseline of functioning and level of symptomatology rendering her ability to contrast her present state with one two weeks ago unreliable. I shared this in phone visit with daughter, instructing Her to provide me her own impressions of how she thinks her mother is doing as she knows her clearly better than I do. I also reviewed the 22/05 supervision requirements necessaryFor her mother upon discharge.I made it clear that thatDid not have to involve assisted living if the family could accomplish it 03/02/17 15:14 Met with pt for 25 min. Pt appears superficially bright and able to smile but inwardly depressed and still focused on pelvic pain. Sleep is good with seroquel 100 mg. No sedation/akithesia/EPS/TD. No signs of delirium. Still with generalized pruritis which may be seroquel vs LMT v ECT related med/ anesthesia. May try other pain meds. Remains amnestic for how she really felt or was functioning pre admit/ECT, hence not allowing for reliable assessment of change from her. Will access info from daughter or sons about their impression. Cont RUL ECT 03/03/17 10:23 Pt appears a bit brighter this am and indeed scores lower on cruz at 25 with question #9 re SI being zero for first time. Subjectively, she continues to assert she is still depressed and in pain pelvically. No delirium or clear worsening of her STM after 3 RUL ECTs. Pruritis unchanged. No rash. Will attempt higher dose of seroquel at 150 mg as she is not oversedated and not akithetic. Sleeps better with it. Higher dose may induce some actual mood change and not simply act as soporific. Plan Cont acute RUL ECT. Will cont Theophylline. Increase Seroquel 03/06/17 11:03 Read MD, RN and CC notes from weekend. Today, left lengthy VM with daughter Siria, spoke directly to POA son, Esequiel, and to Outpt Psychiatrist, Dr Kpalan. Interviewed pt while awaiting ECT. Pt looks a bit brighter and affable but still feels she is dealing with depressed mood and vaginal pain, and scores a 1 on Q#9 of cruz indicating some suicidal ideation. Esequiel however indicates clear evidence to him of OBJECTIVE signs of change: stronger voice, less tense, brighter affect. Today, she shows evidence of rash on chest. Will d/c LMT. If it does not get better, it is likely due to seroquel. Cruz 23/11 today. Plan is to continue acute RUL ect. No signs of significant cognitive effect or delirium. D/C towards end of week to [facility]. Likely cont acute ECT as outpt. Recommend [place] after acute ect done Objective: Vital Signs Temp Pulse Resp BP Pulse Ox 36.7 C 64 16 137/73 H 99 03/06/17 10:46 03/06/17 10:46 03/06/17 10:46 03/06/17 10:46 03/06/17 10:46 Laboratory Results 03/01/17 17:40 ICD10 Worksheet Patient Problems: Problems Problem Status Onset Depression Acute
[2017-03-06] MEDS: CEPACOL LOZENGE PO PRN (12:14)
[2017-03-06] MEDS: DOCUSATE SODIUM 100 MG CAP PO SCH ×2 (13:46→20:52)
[2017-03-06] MEDS: PSYLLIUM METAMUCIL 1 PKT PO SCH ×2 (13:46→20:52)
[2017-03-06] MEDS ORDERED: hydrOXYzine HCL 50 MG TAB PO PRN (20:17)
[2017-03-06] MEDS: CALCIUM CARBONATE 500 MG CHEWABLE TAB PO PRN (20:23)
[2017-03-06] MEDS: QUEtiapine FUMARATE 25 MG TAB PO SCH (20:52)
[2017-03-06] MEDS: ATORVASTATIN CALCIUM 10 MG TAB PO SCH (20:52)
[2017-03-06] MEDS: LIDOCAINE 2% JELLY 5 ML TUBE TP PRN (21:18)
[2017-03-07] MEDS: LOSARTAN POTASSIUM 50 MG TAB PO SCH (08:35)
[2017-03-07] MEDS: amLODIPine BESYLATE 5 MG TAB PO SCH (08:35)
[2017-03-07] MEDS: DOCUSATE SODIUM 100 MG CAP PO SCH ×2 (08:35→20:36)
[2017-03-07] MEDS: METOPROLOL TARTRATE 100 MG TAB PO SCH ×2 (08:36→20:44)
[2017-03-07] MEDS: CHLORTHALIDONE 25 MG TAB PO SCH (08:36)
[2017-03-07] MEDS: PSYLLIUM METAMUCIL 1 PKT PO SCH ×2 (10:11→20:37)
[2017-03-07] MEDS: LIDOCAINE 2% JELLY 5 ML TUBE TP PRN (10:57)
--- NOTE | 2017-03-07 14:06 | SOAPPROG ---
SOAP Progress Note Assessment/Plan: Assessment: Bipolar II, depressed with history of psychotic fx, Cognitive D/O nos ( secondary to meds, Hyponatremia, mood state and/or incipient vascular dementing process), Pain D/O, HTN, Vulvodynia, hyperlipidemia Plan:Met with pt today for 25 min. She is upset about not getting started with ECT today and understands MDs explanation of risks involved with low Na. She responded to seroquel with adequate sleep. She is quite anxious today and has notable hand tremor which could be c/w withdrawal from benzo and trileptal. I have her on essentially a CWAS in that she is being checked q4 hour with VS and for tremulousness with a prn order to give ativan for increased BP, P, or tremor. Will have RN dose her now. Will call son Esequiel re plan and to update him and provide psychoed re ECT. Will have hospitalist consult re Na (which has come up to 127) to ascertain if there might be an etiology other than Trileptal SE. Pt denies polydipsia,for instance. WOuld expect she be re-started on Statin given Lipids and other CAD risk factors, along with MRI findings. Checking HgA1C due to glucose result of CMP 02/22/17 13:23 02/23/17 14:39 Met with pt twice today. Discussed with RN. Pt remains dysphoric, perplexed, anxious and indecisive. MD expressed uncertainty about starting ECT tomorrow vs holding off and giving med approach, as discussed with Dr Kaplan, a try. THese meds include adding Li and LMT to regimen. She had good response to Li historcially and went off of it for no clear reason years ago. My ambiguity was difficult for her and she kept repeating "I'm leaving it up to you...I trust you ". I will have RN do cognitive testing more reliable and sensitive than a MMSE. The presence of dementia-like findings does not prohibit the use of ECT, but puts pt at risk for greater cognitive impact, including delirium. Na level is improving off Trileptal. I greatly appreciate Dr Renteria's thorough eval around this and other issues.. HgA1c point to pre-diabetic changes. Would likely benefit from statin, krishna as she had been on one and became n/c for unclear reasons (not side effects). Will re Check Na one more time tomorrow, review cognitive testing results and decide whether to start ECT Monday. Will keep NPO to cover that possiblity. 02/24/17 12:56 Pt agreed to start RUL ECT today, stating her mood and anxiety were only worsening. Her Na level is up to 133 and her score on the Kevin Cognitive Assessment was 26/30 with points off for recall of 5 words after 5 minutes. Her only real deficit was STM, other cognitive functions remain intact. Again, this can be meds, mood illness, or vascular insult. No contraindication to doing ECT, but does put pt at higher risk of delirium. May need to do 2x/week ECT to mitigate that risk. I will restart her Lipitor. Reviewed with RN the rationale to do q 4 hour VS; namely, to assess for possible withdrawal from Xanax and Trileptal and use ativan to address symptoms of autonomic hyperarousal 02/27/17 11:15 Read , CC and RN notes from weekend. Pt had no evidence of MS change. Subjectively feels worse mood/anxiety billy, which I suspect is a function of d/ c trileptal and xanax leading to some w/d phenomenon. And, ECT is not the cause of worsening; it simply would not be helping yet. Pt wanted to discuss whether she has ADHD as "ECT does not help that" I educated her that her mood disorder is prominent, and that her cognitive symptoms were far more likely a function of her mood, meds and vascular brain changes than "ADHD". Plan cont acute RUL ECT and will increase seroquel at hs to 50 mg. May go higher if tolerated. Pt does have generalized itching with no rash. Only new meds, other than procedure related, are LMT and seroquel. Will observe for rash or worsening. 02/28/17 12:23 Pt feels more depressed "than ever" in last few days. Her affect is not entirely congruent with that, but she does indeed look more constricted. Slept a bit better with increase in seroquel to 50 mg. Will push to 75 and attempt to titrate to dose that may have AD effects and not simply anxiolytic and soporific effects. Feels the generalized itchiness. No rash. Will cont to monitor. Pt reassured that mood and anxiety symptoms are increased likely due to d/c benzo and trileptal. 03/01/17 12:38 Pt still feels worse mood billy and pain billy. Objecdrtively, she appears in no greater distress, psychically or physically. Slept better still with seroquel 75 without akithesia or over sedation. Will push dose to 100 mg. Will also increase LMT to 50 given it has been one week at 25. Will add theophylline due to a bit short on Motor seizure.. No signs of prominent worsening cognitively. She is A and O times 3 and recall doctors name, why she is here, etc. I believe however she is amnestic in terms of her pre ECT baseline of functioning and level of symptomatology rendering her ability to contrast her present state with one two weeks ago unreliable. I shared this in phone visit with daughter, instructing Her to provide me her own impressions of how she thinks her mother is doing as she knows her clearly better than I do. I also reviewed the 22/05 supervision requirements necessaryFor her mother upon discharge.I made it clear that thatDid not have to involve assisted living if the family could accomplish it 03/02/17 15:14 Met with pt for 25 min. Pt appears superficially bright and able to smile but inwardly depressed and still focused on pelvic pain. Sleep is good with seroquel 100 mg. No sedation/akithesia/EPS/TD. No signs of delirium. Still with generalized pruritis which may be seroquel vs LMT v ECT related med/ anesthesia. May try other pain meds. Remains amnestic for how she really felt or was functioning pre admit/ECT, hence not allowing for reliable assessment of change from her. Will access info from daughter or sons about their impression. Cont RUL ECT 03/03/17 10:23 Pt appears a bit brighter this am and indeed scores lower on cruz at 25 with question #9 re SI being zero for first time. Subjectively, she continues to assert she is still depressed and in pain pelvically. No delirium or clear worsening of her STM after 3 RUL ECTs. Pruritis unchanged. No rash. Will attempt higher dose of seroquel at 150 mg as she is not oversedated and not akithetic. Sleeps better with it. Higher dose may induce some actual mood change and not simply act as soporific. Plan Cont acute RUL ECT. Will cont Theophylline. Increase Seroquel 03/06/17 11:03 Read MD, RN and CC notes from weekend. Today, left lengthy VM with daughter Siria, spoke directly to POA son, Esequiel, and to Outpt Psychiatrist, Dr Kaplan. Interviewed pt while awaiting ECT. Pt looks a bit brighter and affable but still feels she is dealing with depressed mood and vaginal pain, and scores a 1 on Q#9 of cruz indicating some suicidal ideation. Esequiel however indicates clear evidence to him of OBJECTIVE signs of change: stronger voice, less tense, brighter affect. Today, she shows evidence of rash on chest. Will d/c LMT. If it does not get better, it is likely due to seroquel. Cruz 23/11 today. Plan is to continue acute RUL ect. No signs of significant cognitive effect or delirium. D/C towards end of week to [facility] 24/7 care. Likely cont acute ECT as outpt. Recommend [place] after acute ect done 03/07/17 14:02 Met with pt for 25 minutes. Spoke of her progress, or her subjective sense of lack thereof. Informed her of Esequiel's belief that she presents as markedly improved which surprised her. Rash still present but it and itching are not worse, maybe " a bit better". SHould resolve IF it is due to LMT, over the next few days. Maybe seroquel or some dermatitis from soap or detergent. Spoke of option to either use ketamine IV as anesthesia OR switch to bilateral ECT. I am inclined to try the latter tomorrow enabling us to evaluate for increased confusion or delirium while she is still in safer setting of inpt. May also then add ketamine at later date. Pt believes Gee is coming by Monday and will likely d/c to his strict 24/7 care. Left VM with Dr Kaplan re updates. Objective: Vital Signs Temp Pulse Resp BP Pulse Ox 36.5 C 66 16 107/56 L 94 03/07/17 11:04 03/07/17 11:04 03/07/17 11:04 03/07/17 11:04 03/07/17 11:04 Laboratory Results 03/01/17 17:40 ICD10 Worksheet Patient Problems: Problems Problem Status Onset Depression Acute
[2017-03-07] MEDS: ATORVASTATIN CALCIUM 10 MG TAB PO SCH (20:36)
[2017-03-07] MEDS: CALCIUM CARBONATE 500 MG CHEWABLE TAB PO PRN (20:36)
[2017-03-07] MEDS: QUEtiapine FUMARATE 25 MG TAB PO SCH (20:36)
[2017-03-08] MEDS ORDERED: LIDOCAINE 2% 5 ML SDV ID ONE (04:00)
[2017-03-08] MEDS ORDERED: ONDANSETRON DISINTEGRATING 4 MG TAB PO ONE (04:00)
[2017-03-08] MEDS ORDERED: CITRIC ACID/SODIUM CITRATE 30 ML UDCUP PO ONE (04:00)
[2017-03-08] MEDS ORDERED: NS 1,000 ML IV ONE (04:00)
[2017-03-08] MEDS ORDERED: THEOPHYLLINE ORAL SOLUTION 80 MG/15 ML UDCUP PO ONE ×2 (04:00→08:30)
[2017-03-08] MEDS ORDERED: fentaNYL 100 MCG/2 ML INJ ONE (05:44)
[2017-03-08] MEDS ORDERED: MIDAZOLAM 2 MG/2 ML VIAL ONE (05:44)
[2017-03-08] MEDS ORDERED: GLYCOPYRROLATE 0.2 MG/1 ML VIAL ONE (05:45)
[2017-03-08] MEDS ORDERED: SUCCINYLCHOLINE CHLORIDE 200 MG/10 ML VIAL ONE (05:45)
[2017-03-08] MEDS ORDERED: ETOMIDATE 20 MG/10 ML VIAL ONE (05:45)
[2017-03-08] MEDS ORDERED: ROCURONIUM 50 MG/5 ML VIAL ONE (05:45)
[2017-03-08] MEDS ORDERED: ONDANSETRON 4 MG/2 ML VIAL ONE (05:45)
[2017-03-08] MEDS: CHLORTHALIDONE 25 MG TAB PO SCH (08:35)
[2017-03-08] MEDS: LOSARTAN POTASSIUM 50 MG TAB PO SCH (08:35)
[2017-03-08] MEDS: METOPROLOL TARTRATE 100 MG TAB PO SCH ×2 (08:37→20:27)
[2017-03-08] MEDS: amLODIPine BESYLATE 5 MG TAB PO SCH (08:37)
[2017-03-08] MEDS ORDERED: ONDANSETRON DISINTEGRATING 4 MG TAB ONE (10:40)
[2017-03-08] MEDS ORDERED: CITRIC ACID/SODIUM CITRATE 30 ML UDCUP ONE (10:40)
[2017-03-08] MEDS: DOCUSATE SODIUM 100 MG CAP PO SCH ×2 (10:58→20:27)
[2017-03-08] MEDS: PSYLLIUM METAMUCIL 1 PKT PO SCH ×2 (10:58→20:29)
[2017-03-08] MEDS ORDERED: PROMETHAZINE HCL 25 MG TAB PO PRN (11:15)
[2017-03-08] MEDS ORDERED: HYDROCODONE/APAP 5/325 TAB PO PRN (11:15)
[2017-03-08] MEDS ORDERED: ONDANSETRON DISINTEGRATING 4 MG TAB PO PRN (11:15)
--- NOTE | 2017-03-08 11:21 | SOAPPROG ---
SOAP Progress Note Assessment/Plan: Assessment: Bipolar II, depressed with history of psychotic fx, Cognitive D/O nos ( secondary to meds, Hyponatremia, mood state and/or incipient vascular dementing process), Pain D/O, HTN, Vulvodynia, hyperlipidemia Plan:Met with pt today for 25 min. She is upset about not getting started with ECT today and understands MDs explanation of risks involved with low Na. She responded to seroquel with adequate sleep. She is quite anxious today and has notable hand tremor which could be c/w withdrawal from benzo and trileptal. I have her on essentially a CWAS in that she is being checked q4 hour with VS and for tremulousness with a prn order to give ativan for increased BP, P, or tremor. Will have RN dose her now. Will call son Esequiel re plan and to update him and provide psychoed re ECT. Will have hospitalist consult re Na (which has come up to 127) to ascertain if there might be an etiology other than Trileptal SE. Pt denies polydipsia,for instance. WOuld expect she be re-started on Statin given Lipids and other CAD risk factors, along with MRI findings. Checking HgA1C due to glucose result of CMP 02/22/17 13:23 02/23/17 14:39 Met with pt twice today. Discussed with RN. Pt remains dysphoric, perplexed, anxious and indecisive. MD expressed uncertainty about starting ECT tomorrow vs holding off and giving med approach, as discussed with Dr Kaplan, a try. THese meds include adding Li and LMT to regimen. She had good response to Li historcially and went off of it for no clear reason years ago. My ambiguity was difficult for her and she kept repeating "I'm leaving it up to you...I trust you ". I will have RN do cognitive testing more reliable and sensitive than a MMSE. The presence of dementia-like findings does not prohibit the use of ECT, but puts pt at risk for greater cognitive impact, including delirium. Na level is improving off Trileptal. I greatly appreciate Dr Renteria's thorough eval around this and other issues.. HgA1c point to pre-diabetic changes. Would likely benefit from statin, krishna as she had been on one and became n/c for unclear reasons (not side effects). Will re Check Na one more time tomorrow, review cognitive testing results and decide whether to start ECT Monday. Will keep NPO to cover that possiblity. 02/24/17 12:56 Pt agreed to start RUL ECT today, stating her mood and anxiety were only worsening. Her Na level is up to 133 and her score on the Kevin Cognitive Assessment was 26/30 with points off for recall of 5 words after 5 minutes. Her only real deficit was STM, other cognitive functions remain intact. Again, this can be meds, mood illness, or vascular insult. No contraindication to doing ECT, but does put pt at higher risk of delirium. May need to do 2x/week ECT to mitigate that risk. I will restart her Lipitor. Reviewed with RN the rationale to do q 4 hour VS; namely, to assess for possible withdrawal from Xanax and Trileptal and use ativan to address symptoms of autonomic hyperarousal 02/27/17 11:15 Read , CC and RN notes from weekend. Pt had no evidence of MS change. Subjectively feels worse mood/anxiety billy, which I suspect is a function of d/ c trileptal and xanax leading to some w/d phenomenon. And, ECT is not the cause of worsening; it simply would not be helping yet. Pt wanted to discuss whether she has ADHD as "ECT does not help that" I educated her that her mood disorder is prominent, and that her cognitive symptoms were far more likely a function of her mood, meds and vascular brain changes than "ADHD". Plan cont acute RUL ECT and will increase seroquel at hs to 50 mg. May go higher if tolerated. Pt does have generalized itching with no rash. Only new meds, other than procedure related, are LMT and seroquel. Will observe for rash or worsening. 02/28/17 12:23 Pt feels more depressed "than ever" in last few days. Her affect is not entirely congruent with that, but she does indeed look more constricted. Slept a bit better with increase in seroquel to 50 mg. Will push to 75 and attempt to titrate to dose that may have AD effects and not simply anxiolytic and soporific effects. Feels the generalized itchiness. No rash. Will cont to monitor. Pt reassured that mood and anxiety symptoms are increased likely due to d/c benzo and trileptal. 03/01/17 12:38 Pt still feels worse mood billy and pain billy. Objecdrtively, she appears in no greater distress, psychically or physically. Slept better still with seroquel 75 without akithesia or over sedation. Will push dose to 100 mg. Will also increase LMT to 50 given it has been one week at 25. Will add theophylline due to a bit short on Motor seizure.. No signs of prominent worsening cognitively. She is A and O times 3 and recall doctors name, why she is here, etc. I believe however she is amnestic in terms of her pre ECT baseline of functioning and level of symptomatology rendering her ability to contrast her present state with one two weeks ago unreliable. I shared this in phone visit with daughter, instructing Her to provide me her own impressions of how she thinks her mother is doing as she knows her clearly better than I do. I also reviewed the 22/05 supervision requirements necessaryFor her mother upon discharge.I made it clear that thatDid not have to involve assisted living if the family could accomplish it 03/02/17 15:14 Met with pt for 25 min. Pt appears superficially bright and able to smile but inwardly depressed and still focused on pelvic pain. Sleep is good with seroquel 100 mg. No sedation/akithesia/EPS/TD. No signs of delirium. Still with generalized pruritis which may be seroquel vs LMT v ECT related med/ anesthesia. May try other pain meds. Remains amnestic for how she really felt or was functioning pre admit/ECT, hence not allowing for reliable assessment of change from her. Will access info from daughter or sons about their impression. Cont RUL ECT 03/03/17 10:23 Pt appears a bit brighter this am and indeed scores lower on cruz at 25 with question #9 re SI being zero for first time. Subjectively, she continues to assert she is still depressed and in pain pelvically. No delirium or clear worsening of her STM after 3 RUL ECTs. Pruritis unchanged. No rash. Will attempt higher dose of seroquel at 150 mg as she is not oversedated and not akithetic. Sleeps better with it. Higher dose may induce some actual mood change and not simply act as soporific. Plan Cont acute RUL ECT. Will cont Theophylline. Increase Seroquel 03/06/17 11:03 Read , RN and CC notes from weekend. Today, left lengthy VM with daughter Siria, spoke directly to POA son, Esequiel, and to Outpt Psychiatrist, Dr Kaplan. Interviewed pt while awaiting ECT. Pt looks a bit brighter and affable but still feels she is dealing with depressed mood and vaginal pain, and scores a 1 on Q#9 of cruz indicating some suicidal ideation. Esequiel however indicates clear evidence to him of OBJECTIVE signs of change: stronger voice, less tense, brighter affect. Today, she shows evidence of rash on chest. Will d/c LMT. If it does not get better, it is likely due to seroquel. Cruz 23/11 today. Plan is to continue acute RUL ect. No signs of significant cognitive effect or delirium. D/C towards end of week to [facility] 24/7 care. Likely cont acute ECT as outpt. Recommend [place] after acute ect done 03/07/17 14:02 Met with pt for 25 minutes. Spoke of her progress, or her subjective sense of lack thereof. Informed her of Esequiel's belief that she presents as markedly improved which surprised her. Rash still present but it and itching are not worse, maybe " a bit better". SHould resolve IF it is due to LMT, over the next few days. Maybe seroquel or some dermatitis from soap or detergent. Spoke of option to either use ketamine IV as anesthesia OR switch to bilateral ECT. I am inclined to try the latter tomorrow enabling us to evaluate for increased confusion or delirium while she is still in safer setting of inpt. May also then add ketamine at later date. Pt believes Gee is coming by Monday and will likely d/c to his strict 24/7 care. Left VM with Dr Kaplan re updates. 03/08/17 11:18 Met with pt before ECT this am. She feels no subjective change in depression or pain, but I continue to suspect that--like many of our ECT patients in the midst of their acute phase--she does not accurately recollect her pre ECT baseline. Esequielidalia input speaks to this. She slept well. Itching is decreased but not gone. No extension of rash. Erythematous, excoriated papules on L upper chest are unchanged. Did implement B ECT today, per yesterdays discussion. Pt able to smile, but is impoverished in speech, and overall constricted in affect congruent with her stated mood. Her cruz score was 20/0 today, compared to the 32/1 prior to her first ECT. Objective: Vital Signs Temp Pulse Resp BP Pulse Ox 36.4 C 65 16 116/60 95 03/08/17 06:17 03/08/17 06:17 03/08/17 06:17 03/08/17 06:17 03/08/17 06:17 Laboratory Results 03/01/17 17:40 ICD10 Worksheet Patient Problems: Problems Problem Status Onset Depression Acute
[2017-03-08] MEDS: QUEtiapine FUMARATE 25 MG TAB PO SCH (20:26)
[2017-03-08] MEDS: ATORVASTATIN CALCIUM 10 MG TAB PO SCH (20:27)
[2017-03-09] MEDS: amLODIPine BESYLATE 5 MG TAB PO SCH ×2 (08:38→13:57)
[2017-03-09] MEDS: LOSARTAN POTASSIUM 50 MG TAB PO SCH ×2 (08:38→14:11)
[2017-03-09] MEDS: CHLORTHALIDONE 25 MG TAB PO SCH ×2 (08:39→14:00)
[2017-03-09] MEDS: METOPROLOL TARTRATE 100 MG TAB PO SCH ×3 (08:39→20:33)
[2017-03-09] MEDS: DOCUSATE SODIUM 100 MG CAP PO SCH ×2 (08:39→20:36)
[2017-03-09] MEDS: PSYLLIUM METAMUCIL 1 PKT PO SCH ×2 (09:20→20:41)
[2017-03-09] MEDS: LIDOCAINE 2% JELLY 5 ML TUBE TP PRN ×2 (11:34→20:40)
--- NOTE | 2017-03-09 13:49 | SOAPPROG ---
SOAP Progress Note Assessment/Plan: Assessment: Bipolar II, depressed with history of psychotic fx, Cognitive D/O nos ( secondary to meds, Hyponatremia, mood state and/or incipient vascular dementing process), Pain D/O, HTN, Vulvodynia, hyperlipidemia Plan:Met with pt today for 25 min. She is upset about not getting started with ECT today and understands MDs explanation of risks involved with low Na. She responded to seroquel with adequate sleep. She is quite anxious today and has notable hand tremor which could be c/w withdrawal from benzo and trileptal. I have her on essentially a CWAS in that she is being checked q4 hour with VS and for tremulousness with a prn order to give ativan for increased BP, P, or tremor. Will have RN dose her now. Will call son Esequiel re plan and to update him and provide psychoed re ECT. Will have hospitalist consult re Na (which has come up to 127) to ascertain if there might be an etiology other than Trileptal SE. Pt denies polydipsia,for instance. WOuld expect she be re-started on Statin given Lipids and other CAD risk factors, along with MRI findings. Checking HgA1C due to glucose result of CMP 02/22/17 13:23 02/23/17 14:39 Met with pt twice today. Discussed with RN. Pt remains dysphoric, perplexed, anxious and indecisive. MD expressed uncertainty about starting ECT tomorrow vs holding off and giving med approach, as discussed with Dr Kaplan, a try. THese meds include adding Li and LMT to regimen. She had good response to Li historcially and went off of it for no clear reason years ago. My ambiguity was difficult for her and she kept repeating "I'm leaving it up to you...I trust you ". I will have RN do cognitive testing more reliable and sensitive than a MMSE. The presence of dementia-like findings does not prohibit the use of ECT, but puts pt at risk for greater cognitive impact, including delirium. Na level is improving off Trileptal. I greatly appreciate Dr Renteria's thorough eval around this and other issues.. HgA1c point to pre-diabetic changes. Would likely benefit from statin, krishna as she had been on one and became n/c for unclear reasons (not side effects). Will re Check Na one more time tomorrow, review cognitive testing results and decide whether to start ECT Monday. Will keep NPO to cover that possiblity. 02/24/17 12:56 Pt agreed to start RUL ECT today, stating her mood and anxiety were only worsening. Her Na level is up to 133 and her score on the Kevin Cognitive Assessment was 26/30 with points off for recall of 5 words after 5 minutes. Her only real deficit was STM, other cognitive functions remain intact. Again, this can be meds, mood illness, or vascular insult. No contraindication to doing ECT, but does put pt at higher risk of delirium. May need to do 2x/week ECT to mitigate that risk. I will restart her Lipitor. Reviewed with RN the rationale to do q 4 hour VS; namely, to assess for possible withdrawal from Xanax and Trileptal and use ativan to address symptoms of autonomic hyperarousal 02/27/17 11:15 Read , CC and RN notes from weekend. Pt had no evidence of MS change. Subjectively feels worse mood/anxiety billy, which I suspect is a function of d/ c trileptal and xanax leading to some w/d phenomenon. And, ECT is not the cause of worsening; it simply would not be helping yet. Pt wanted to discuss whether she has ADHD as "ECT does not help that" I educated her that her mood disorder is prominent, and that her cognitive symptoms were far more likely a function of her mood, meds and vascular brain changes than "ADHD". Plan cont acute RUL ECT and will increase seroquel at hs to 50 mg. May go higher if tolerated. Pt does have generalized itching with no rash. Only new meds, other than procedure related, are LMT and seroquel. Will observe for rash or worsening. 02/28/17 12:23 Pt feels more depressed "than ever" in last few days. Her affect is not entirely congruent with that, but she does indeed look more constricted. Slept a bit better with increase in seroquel to 50 mg. Will push to 75 and attempt to titrate to dose that may have AD effects and not simply anxiolytic and soporific effects. Feels the generalized itchiness. No rash. Will cont to monitor. Pt reassured that mood and anxiety symptoms are increased likely due to d/c benzo and trileptal. 03/01/17 12:38 Pt still feels worse mood billy and pain billy. Objecdrtively, she appears in no greater distress, psychically or physically. Slept better still with seroquel 75 without akithesia or over sedation. Will push dose to 100 mg. Will also increase LMT to 50 given it has been one week at 25. Will add theophylline due to a bit short on Motor seizure.. No signs of prominent worsening cognitively. She is A and O times 3 and recall doctors name, why she is here, etc. I believe however she is amnestic in terms of her pre ECT baseline of functioning and level of symptomatology rendering her ability to contrast her present state with one two weeks ago unreliable. I shared this in phone visit with daughter, instructing Her to provide me her own impressions of how she thinks her mother is doing as she knows her clearly better than I do. I also reviewed the 22/05 supervision requirements necessaryFor her mother upon discharge.I made it clear that thatDid not have to involve assisted living if the family could accomplish it 03/02/17 15:14 Met with pt for 25 min. Pt appears superficially bright and able to smile but inwardly depressed and still focused on pelvic pain. Sleep is good with seroquel 100 mg. No sedation/akithesia/EPS/TD. No signs of delirium. Still with generalized pruritis which may be seroquel vs LMT v ECT related med/ anesthesia. May try other pain meds. Remains amnestic for how she really felt or was functioning pre admit/ECT, hence not allowing for reliable assessment of change from her. Will access info from daughter or sons about their impression. Cont RUL ECT 03/03/17 10:23 Pt appears a bit brighter this am and indeed scores lower on cruz at 25 with question #9 re SI being zero for first time. Subjectively, she continues to assert she is still depressed and in pain pelvically. No delirium or clear worsening of her STM after 3 RUL ECTs. Pruritis unchanged. No rash. Will attempt higher dose of seroquel at 150 mg as she is not oversedated and not akithetic. Sleeps better with it. Higher dose may induce some actual mood change and not simply act as soporific. Plan Cont acute RUL ECT. Will cont Theophylline. Increase Seroquel 03/06/17 11:03 Read , RN and CC notes from weekend. Today, left lengthy VM with daughter Siria, spoke directly to POA son, Esequiel, and to Outpt Psychiatrist, Dr Kaplan. Interviewed pt while awaiting ECT. Pt looks a bit brighter and affable but still feels she is dealing with depressed mood and vaginal pain, and scores a 1 on Q#9 of cruz indicating some suicidal ideation. Esequiel however indicates clear evidence to him of OBJECTIVE signs of change: stronger voice, less tense, brighter affect. Today, she shows evidence of rash on chest. Will d/c LMT. If it does not get better, it is likely due to seroquel. Cruz 23/11 today. Plan is to continue acute RUL ect. No signs of significant cognitive effect or delirium. D/C towards end of week to [facility] 24/7 care. Likely cont acute ECT as outpt. Recommend [place] after acute ect done 03/07/17 14:02 Met with pt for 25 minutes. Spoke of her progress, or her subjective sense of lack thereof. Informed her of Esequiel's belief that she presents as markedly improved which surprised her. Rash still present but it and itching are not worse, maybe " a bit better". SHould resolve IF it is due to LMT, over the next few days. Maybe seroquel or some dermatitis from soap or detergent. Spoke of option to either use ketamine IV as anesthesia OR switch to bilateral ECT. I am inclined to try the latter tomorrow enabling us to evaluate for increased confusion or delirium while she is still in safer setting of inpt. May also then add ketamine at later date. Pt believes Gee is coming by Monday and will likely d/c to his strict 24/7 care. Left VM with Dr Kaplan re updates. 03/08/17 11:18 Met with pt before ECT this am. She feels no subjective change in depression or pain, but I continue to suspect that--like many of our ECT patients in the midst of their acute phase--she does not accurately recollect her pre ECT baseline. Esequielidalia input speaks to this. She slept well. Itching is decreased but not gone. No extension of rash. Erythematous, excoriated papules on L upper chest are unchanged. Did implement B ECT today, per yesterdays discussion. Pt able to smile, but is impoverished in speech, and overall constricted in affect congruent with her stated mood. Her cruz score was 20/0 today, compared to the 32/1 prior to her first ECT. 03/09/17 13:45 Pt intervied. Chart reviewed. 25 min spent. Pt remains dysphoric and increasingly hopeless that ECT will "not work" as her pain and depression, subjectively, are unimproved (in contrast to son's belief she shows objective sxs of improvement). Pt does indeed appear more constricted in affect, less smiley. Less verbal. Possibly the cognitive SE of ECT are contributing to her abulia. VS reveal periods of low BP and some symptoms of fatigue. May be additive effect on lowering BP from seroquel(?). Dependency Counselor to be consulted; anticipate he may pull back on some of her anti-HTN meds. Plan to cont acute B ECT tomorrow and thru next week, likely with d/c occurring MONDAY as he son will be able to provide 24/7 supervision at that time. Spoke of med option beyond Seroquel such as restarting Li. Will not re start LMT as rash and itching are subsiding speaking to its role. Objective: Vital Signs Temp Pulse Resp BP Pulse Ox 36.3 C 92 14 117/58 L 94 03/09/17 00:30 03/09/17 13:23 03/09/17 13:23 03/09/17 13:23 03/09/17 13:23 Laboratory Results 03/01/17 17:40 ICD10 Worksheet Patient Problems: Problems Problem Status Onset Depression Acute
[2017-03-09] MEDS: ATORVASTATIN CALCIUM 10 MG TAB PO SCH (20:33)
[2017-03-09] MEDS: QUEtiapine FUMARATE 25 MG TAB PO SCH (20:36)
[2017-03-10] MEDS ORDERED: ONDANSETRON DISINTEGRATING 4 MG TAB PO ONE (04:00)
[2017-03-10] MEDS ORDERED: LIDOCAINE 2% 5 ML SDV ID ONE (04:00)
[2017-03-10] MEDS ORDERED: CITRIC ACID/SODIUM CITRATE 30 ML UDCUP PO ONE (04:00)
[2017-03-10] MEDS ORDERED: NS 1,000 ML IV ONE (04:00)
[2017-03-10] MEDS ORDERED: THEOPHYLLINE ORAL SOLUTION 80 MG/15 ML UDCUP PO ONE (04:00)
[2017-03-10] MEDS ORDERED: GLYCOPYRROLATE 0.2 MG/1 ML VIAL ONE (05:48)
[2017-03-10] MEDS ORDERED: fentaNYL 100 MCG/2 ML INJ ONE (05:48)
[2017-03-10] MEDS ORDERED: ONDANSETRON 4 MG/2 ML VIAL ONE (05:48)
[2017-03-10] MEDS ORDERED: ETOMIDATE 20 MG/10 ML VIAL ONE (05:48)
[2017-03-10] MEDS ORDERED: MIDAZOLAM 2 MG/2 ML VIAL ONE (05:48)
[2017-03-10] MEDS ORDERED: ROCURONIUM 50 MG/5 ML VIAL ONE (05:49)
[2017-03-10] MEDS ORDERED: SUCCINYLCHOLINE CHLORIDE 200 MG/10 ML VIAL ONE (05:49)
[2017-03-10] MEDS: METOPROLOL TARTRATE 100 MG TAB PO SCH ×2 (06:22→08:05)
[2017-03-10] MEDS: amLODIPine BESYLATE 5 MG TAB PO SCH (08:06)
[2017-03-10] MEDS ORDERED: ONDANSETRON DISINTEGRATING 4 MG TAB ONE (09:55)
[2017-03-10] MEDS ORDERED: CITRIC ACID/SODIUM CITRATE 30 ML UDCUP ONE (09:55)
[2017-03-10] MEDS ORDERED: ONDANSETRON DISINTEGRATING 4 MG TAB PO PRN (10:23)
[2017-03-10] MEDS ORDERED: HYDROCODONE/APAP 5/325 TAB PO PRN (10:23)
[2017-03-10 11:23] VITALS: RESP 15
[2017-03-10 12:30] VITALS: PULSE 62
[2017-03-10] MEDS: PSYLLIUM METAMUCIL 1 PKT PO SCH (12:51)
[2017-03-10 13:12] VITALS: BP 161/66; TEMP 97.3; O2SAT 97
[2017-03-10] MEDS: DOCUSATE SODIUM 100 MG CAP PO SCH (14:27)
--- NOTE | 2017-03-10 14:54 | BDS ---
[f rep st] BEHAVIORAL HEALTH DISCHARGE SUMMARY IDENTIFYING DATA: The patient is a 76-year-old, , white female who was referred initially f or ECT consultation by Eagle Kaplna MD who is her outpatient psychiatrist. Patient presently lives alone, has a slew of family members and friends who have provided care for her over the last couple of months. She has prior ECT treatment 50 years ago. REASON FOR ADMISSION: This patient has a long history of mood disorder, most likely consistent with bipolar spectrum illness who has been experiencing a 2 month history of dramatic increase in her de pression with comorbid severe vulvodynia. The vulvodynia has been approached with multiple treatment efforts to no avail. She had significant vegetative depressive symptoms and scored a 45 on her init ial Barnett rating scale with question 9 pertaining to suicidality scoring as a 1. She was receiving vi rtually no benefit from her psychiatric medications which, at that time, included oxcarbazepine and alprazolam along with 4 antihypertensives. She was evaluated in the emergency department presumptive ly to be admitted routinely as an ECT patient; however, some medical findings came back as significa nt including a sodium of 124. MRI of the brain did show significant bilateral white matter lesions c onsistent with possible "vascular depression." She also had THC in her urine drug screen along with benzodiazepines. Her daughter indicated that she had provided her mother a marijuana Brownie for her vulvodynia pain. ROUTINE PHYSICAL EXAMINATION: Performed by Dio Renteria. Spoke of: 1. Hyponatremia, improving with discontinuation of oxcarbazepine. Most likely oxcarbazepine is etio logic. It is possible that chlorthalidone is contributing as well. BMP has been ordered to be repeat ing in the morning. I have added on serum osmolality, urine osmolality, and urine sodium, so that in case her serum sodium is not improving, we can have a better understanding of the etiology of the h yponatremia. 2. Dyslipidemia. Per the ACC/SERNA 2013 criterion, she has a 16.8% 10 year cardiovascular risk with he r hemoglobin A1c being at the upper end of normal indicating a possible prediabetic condition as wel l as possible peripheral vascular disease with no palpable pulses in her left foot. It is likely riana t an HMG-CoA reductase inhibitor is indicated to improve her dyslipidemia and reduce her 10 year car diovascular risk. She could be further risk stratified as an outpatient with an ankle brachial index to rule out peripheral vascular disease. Her risk factors would be history of smoking and hypertens ion as well as dyslipidemia. 3. Hypertension. Appears to be adequately controlled on her current medications. 4. Subclinical hyperthyroidism. I have ordered a free T4 and T3 for tomorrow morning. Her thyroid a bnormality may be resulting from her depression and weight loss. It is unlikely that with such a sli ghtly suppressed TSH that hyperthyroidism would be etiologic. There is no abnormality in her thyroid exam. Advised recheck TSH in 4-6 weeks. 5. Possible peripheral vascular disease. Advised ankle brachial index testing as an outpatient. 6. Cognitive impairment. Vascular dementia is a possibility. Vascular risk factors are also risk fa ctors for Alzheimer dementia. Consider formal cognitive testing by a neuropsychologist if cognition does not improve with treatment of depression. 7. Vulvodynia. She reports evaluation by 3 different physicians and complained of ongoing pain alth ough she did not seem distressed today. Query whether there is an element of dementia related persev eration. Further evaluation could include review of records from treating physicians. Dr. Renteria pro vided a followup note the next day reviewing her sodium results which had elevated to 132, still low but clearly improved from the 124. His other testing indicated that her urine was dilute and not co nsistent with SIADH. As her hyponatremia was resolving and her blood pressure had been elevated, he would not consider stopping chlorthalidone at this time. ROUTINE LABORATORY WORK: Complete blood count was within normal limits except for slightly low maida tocrit at 34.6. BMP did show her sodium elevate from 124 up to a fairly consistent 132 by 02/23. Hemo globin A1c was 6.0. Serum osmolality was 277. Calcium was normal. Triglycerides were elevated at 166 and LDL at 131. HDL was 55. Vitamin B12 was 983. 25 hydroxy vitamin D was 72, folate was greater th an 20. TSH was 0.397 with normal free T4 and T3 at 1.18 and 1.16 respectively. Urinalysis was negati ve. Urine osmolality was 197 which is low as was her random urine sodium. Urine toxicology was non-n egative for benzodiazepines and marijuana upon admission. Her LIZ screen was normal at 0.18. 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 HOSPITAL COURSE: There was a delay in starting her ECT given the low sodium level. Her Trileptal an d alprazolam were discontinued, and she was placed on a CWAS protocol with having vitals checked socorro ry 4 hours in order to ascertain for withdrawal phenomenon. Her son, Esequiel who is power of social science teacher, gave his informed consent for her to start right unilateral ECT once the sodium issue was resolved. I started and ultimately titrated Seroquel up to 150 mg at h.s. with good effect on sleep. Lamictal was also started and titrated as high as 50 mg; however, within a week of starting a both of those medications, she developed generalized itching and ultimately a low-grade rash on her upper left jessica st prompting discontinuation of the lamotrigine and subsequent resolution of itching and rash within a few days. She underwent a total of 6 right unilateral ECT treatments with her Barnett Score coming d own from a high of 45 to 18. Incidentally, the patient subjectively feels very little benefit from t reatment, but her son with whom the abstract writer spoke at length a few days prior to discharge feels that there has been some notable positive change objectively in her voice, affect, and general dispositio n. It is acknowledged by patient's whole family that she is difficult to read in terms of her mood a s she does present a smiley face as best she can. I was also quite concerned given the baseline cogn itive deficits in short-term memory that she would be at high risk for severe cognitive impact from the ECT, but she endured the treatment thus far without any dramatic impact other than the expected further impairment in short-term memory. In fact, we did the last 2 treatments bilateral with simila r lack of evidence for confusion or delirium. She does still state that she is depressed and has peng oing pelvic ,pain but it is notable that she is not reporting the pain spontaneously but only when a sked about it. I did go ahead and start her back on Lipitor that she had been on in the past given Margoth Renteria's note and risk assessment. It was felt that she could be discharged today as her son, Iglesia randolph, is able to be in town for 3-4 weeks providing her strict 24/7 supervision. Missy Smith spoke wit h him today about the needs around supervision and especially our concerns about her becoming more f rankly delirious or confused which should prompt him to bring her back into the hospital. I will con syrup mixer adding ketamine beyond starting the bilateral treatment if, by next week, she continues to sub jectively feel that there is limited benefit. I have also spoken with Dr. Kaplan and indicated that a medication option that I feel might be fruitful would be the addition of lithium after her acute tr eatments are finished. MEDICATIONS: Amlodipine 5 mg p.o. q. day, Lipitor 10 mg p.o. q.h.s., chlorthalidone 12.5 mg p.o. q. day, Colace 100 mg p.o. b.i.d., Metamucil 1 packet with 12 ounces of water p.o. b.i.d., losartan 10 0 mg p.o. q. day (our butter liquefier recommended that she hold this medication until she is seen by her the orthopedic specialty hospital doc as she has had some hypotensive episodes with dizziness, the patient was given this explicit instruction), metoprolol 100 mg p.o. b.i.d., Seroquel 150 mg p.o. q.h.s. DISPOSITION: Patient will return home with 24/ supervision being provided by her son, Gee, over the next few weeks. I anticipate that she will need 1 more week of acute ECT followed by a conservat parish taper. We will consider adding ketamine as her anesthetic next week. Gee knows he should bring the patient back to the hospital if she shows signs of confusion lasting beyond a few hours after a ny ECT treatment. It is up to him to hold onto and dispense her medications, allow no driving, and o nly allow her to cook while supervised. She should follow up with her primary care doc or her cardio logist about her blood pressure issues as soon as possible. One of her medications, losartan, is pre sently being held until that evaluation can happen. Lipitor has been started, and her PCP will likel y want to recheck her lipids in 4-6 weeks. The patient's sodium level also remains slightly low at 1 32 despite discontinuation of the oxcarbazepine. This could be the diuretic that she has as one of h er antihypertensives. She is otherwise asymptomatic. 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 AXIS II: Deferred. AXIS III: Vulvodynia, remote history of breast cancer, hypertension, hyperlipidemia, and mild hypona tremia. AXIS IV: Moderate. AXIS V: 42. /[id number]/MODL
== END 2017-03-10 17:25 | disposition home or self-care (01) | DRG 885 ==
LOC: BBEH 21:25
PROVIDERS: ADMIT Psychiatry & Neurology Psychiatry; ATTEND Psychiatry & Neurology Psychiatry
PROC: GZB0ZZZ Electroconvulsive Therapy, Unilateral-Single Seizure (ICD-10-PCS; principal; 2017-02-24)
DX: F31.81 Bipolar II disorder (principal); E87.1 Hypo-osmolality and hyponatremia; I10 Essential (primary) hypertension; N94.819 Vulvodynia, unspecified; R41.9 Unspecified symptoms and signs involving cognitive functions and awareness
CPT/HCPCS: 80305; 81291-90; 82607-90; 84480-90; 86141-90; G0480; J0330; J2250; J2405; J3010